=== PATIENT | female | born 1955 | race Caucasian/White ===

== ENCOUNTER 2016-05-30 15:50 | Inpatient (IN) ==
[2016-05-30] MEDS ORDERED: SODIUM CHLORIDE 0.9% 1,000 ML IV STA (16:09)
[2016-05-30] MEDS ORDERED: ALBUTEROL/IPRATROPIUM 3 ML NEB RESP TX STA (16:13)
[2016-05-30] MEDS ORDERED: SODIUM CHLORIDE 0.9% 500 ML IV STA (16:48)
[2016-05-30 16:53] LABS: Basophils % 0.3 % (0.0-0.8); Eosinophils % 0.1 % (0.00-10.9); Hematocrit 30.5 VOL% (35.7-47.0); Hemoglobin 8.8 GM/DL (12.0-16.0); Immature Granulocytes % 0.6 %; Immature Granulocytes Absolute 0.07 #; Lymphocytes # 0.8 10*3/uL (1.4-4.0); Lymphocytes % 7.4 % (21.3-54.2); Mean Corpuscular HGB Conc 28.9 GM/DL (32-36); Mean Corpuscular Hemoglobin 22 PG (27-34); Mean Corpuscular Volume 75.7 FL (87-102); Mean Platelet Volume 10.3 FL (9.6-12.0); Monocytes # 0.4 10*3/uL (0.11-0.8); Monocytes % 3.8 % (1.7-12.7); Neutrophils # 9.5 10*3/uL (1.4-7.4); Neutrophils % 87.8 % (38.7-73.9); Platelet Count 245 T/CUMM (130-400); Red Blood Count 4.03 MC/CUMM (3.8-5.5); Red Cell Distribution Width 19.3 % (9.3-17.3); White Blood Count 10.8 T/CUMM (4-12)
--- NOTE | 2016-05-30 16:58 | CT Report ---
History is right upper abdominal mass on physical exam 80 cc Omnipaque 350 utilized There is dense edematous consolidation throughout the right lower lobe There is mildly inhomogeneous enhancement in the liver which is enlarged. Likely flow artifact in the left lobe present The spleen is mild to moderately enlarged without focal defect No focal defects seen in the pancreas, adrenals, or kidneys Patient is status post cholecystectomy Bowel is unopacified Unopacified loops of bowel present in the right upper abdomen negative. What is questionably appendix is within this region without definite surrounding inflammatory changes. Lack of bowel prep limits visualization There are atherosclerotic changes in the abdominal aorta which measures up to 2.5 cm. There is diastases of the rectus muscles Pelvis: No significant free fluid or focal inflammatory changes seen. Mild increased density in the lateral aspects of the sacrum bilaterally could be related to chronic sacroiliitis or chronic sacral insufficiency fractures. There is a chronic appearing incompletely united fracture with surrounding callus formation at symphysis on the right. Impression: 1. Dense edematous consolidation throughout the right lower lobe 2. Hepatosplenomegaly 3. Prior cholecystectomy and other findings detailed above The CT exam was performed using one or more of the following dose reduction techniques: Automated exposure control, adjustment of the mA and/or kV according to patient size, or use of iterative reconstruction technique. PROCEDURE INTERPRETED AT [facility] DEPARTMENT OF RADIOLOGY Final Report Signed by: Dr. Karissa Alegria
--- NOTE | 2016-05-30 17:01 | XRay Report ---
History short of breath Comparison 01/21/2015 The heart is enlarged. Mild hilar fullness may be related to vasculature and rotation without obvious change in the interval however the right hilum is partially obscured by a dense consolidation in the right lower lobe with suspected small effusion Mild stranding opacities and suspected confluence shadows in the left upper chest present with overlying chronic rib fractures seen on the prior studies Impression: 1. Dense consolidation and suspected effusion in the right lung base. Follow-up until clear is necessary to exclude underlying mass or adenopathy PROCEDURE INTERPRETED AT [facility] DEPARTMENT OF RADIOLOGY Final Report Signed by: Dr. Karissa Alegria
--- NOTE | 2016-05-30 17:06 | EKG Report ---
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
[2016-05-30 17:11] LABS: D-Dimer 1.6 MG/L FEU; INR 1.4; PT Patient Result 15.6 SECS
[2016-05-30 17:31] LABS: Alanine Aminotransferase 32 U/L (13-56); Albumin 2.9 G/DL (3.4-5.0); Alkaline Phosphatase 216 U/L (45-117); Aspartate Amino Transferase 36 U/L (0-37); Blood Urea Nitrogen 23 MG/DL (7-18); Calcium 8.2 MG/DL (8.5-10.1); Glucose 87 MG/DL (74-106); Magnesium 1.6 MG/DL (1.8-2.4); Osmolality,Calculated 277.7 MOS/KG (273-304); Potassium 3.2 MMOL/L (3.5-5.1); Sodium 138 MMOL/L (136-145); Total Protein 6.1 G/DL (6.4-8.3); Troponin I Only < 0.015 NG/ML (0.00-0.045)
[2016-05-30 17:33] LABS: Band Neutrophils 14 % (0-10); Lymphocytes 5 % (20-55); Metamyelocytes 2 %; Segmented Neutrophils 76 % (50-85); Total Cells Counted 100
[2016-05-30 17:34] LABS: Anisocytosis 1+; Burr Cells Few; Elliptocytes Few; Hypochromasia 1+
[2016-05-30 17:35] LABS: Platelet Estimate Adequate; Polychromasia Slight
--- NOTE | 2016-05-30 17:39 | Emergency Department Note ---
Efrain Boyle Brooke, am scribing for, and in the presence of, Domingo Ford MD 16:15. Logan Boyle Phillip K, MD, personally performed the services described in this documentation, ascribed by Inés Zuniga in my presence, and it is both accurate and complete 708 . Arrival - Arrival Chief Complaint: Shortness of Breath Stated Complaint: stomach pain, shortness of breath, ED Nursing Triage Note: abd pain and loose stoles onset last night, pt also complains of sob, hx of copd Mode of Arrival: Wheelchair Limitations: No Limitations Source: Patient, Family, RN Notes Reviewed Time Seen by Provider: 05/30/16 16:02 - History of Present Illness HPI Narrative: Patient is a 61 year old female who presents to the ED with c/o SOB, abdominal pain, and diarrhea. Patient says she has been SOB for a "while" but states that it worsened last night. Patient says the abdominal pain and diarrhea started this morning. The abdominal pain is located in the RUQ and she describes the pain as "burning." Patient has had two episodes of diarrhea today. Family states that Patient appears "yellow." Patient says she has had diverticulitis in the past but was not treated for it. She says it was found by scope performed by Dr. Boyd. She also has a productive cough with yellow mucous but she denies any fever. Patient no longer has a gallbladder. She sometimes gets a "little" dizzy when she sits up. She has PMHx of HTN, COPD, pneumonia, GERD, and anemia. She denies having any liver problems in the past. Patient has home breathing treatments. She says she does not have any heart problems but her family states that she is a "heart patient." Family says Patient had a thoracentesis last year. Patient is a smoker but does not drink any alcohol. Her Primary Care Provider is Dr. Cuello that is located in [place]. Allergies/Adverse Reactions: Allergies Allergy/AdvReac Type Severity Reaction Status Date / Time codeine Allergy Intermediate RASH Verified 01/16/15 10:33 Cefaclor [From Ceclor] Allergy RASH Verified 05/30/16 15:57 Home Medications: Home Medications Medication Instructions Recorded Confirmed Type Amitriptyline HCl 25 - 50 mg PO BEDTIME 01/15/15 05/30/16 History Butalb/Acetaminophen/Caffeine 1 mg PO TID PRN 01/15/15 05/30/16 History [Wliyzd-Zlnctxpn-Vwjh 50-325-40] Promethazine Tab [Phenergan Tab] 25 mg PO BID PRN 01/15/15 05/30/16 History Tizanidine HCl 4 mg PO BEDTIME 01/15/15 05/30/16 History Albuterol Neb [Proventil Neb] 2.5 mg RESP TX RT Q1H PRN #30 01/22/15 05/30/16 Rx nebulization solution Budesonide/Formoterol 160-4.5 2 puff INH BID #30 inhaler 01/22/15 05/30/16 Rx [Symbicort 160-4.5] Lisinopril [Prinivil] 5 mg PO DAILY #30 tablet 01/22/15 05/30/16 Rx Albuterol Sulfate [Proair HFA] 2 puffs INH Q4-6H 05/30/16 05/30/16 History Metoprolol Succinate Xl [Toprol Xl] 25 mg PO DAILY 05/30/16 05/30/16 History cephALEXin [Cephalexin] 500 mg PO BID 05/30/16 05/30/16 History Review of System - Review of System 12 point system: reviewed and no additional remarkable complaints except as stated - Review of System Constitutional: Absent: fever Respiratory: Present: cough (productive with yellow mucous), respiratory distress (SOB) Gastrointestinal: Present: abdominal pain (left sided burning pain), diarrhea. Absent: nausea, vomiting Skin: Present: other (appears yellow). Absent: rash Medical,Surgical,& Family Hx - Medical History Cardio: History of: Hypertension No history of: CAD HEENT: History of: Eye Problem (wears glasses), Dental Problems (partial dentures) Endocrine: No history of: Diabetes Mellitus (IDDM), Diabetes Mellitus (NIDDM), Dyslipidemia Respiratory: History of: COPD, Pneumonia Gastrointestinal: History of: GERD Hematology: History of: Anemia - Surgical History Thoracic Surgeries: Patient denies;: Organ Transplant Abdominal Surgeries: Surgical HX of: Cholecystectomy Reproductive Surgeries: Surgical HX of;: Section - Family History Family History: Reports;: Family Cancer Denies;: Family Diabetes, Family Heart Disease, Family Hypertension, Family Stroke - Social History Smoking Status: Smoker, status unknown Exam Vital Signs: Vital Signs Temperature 98.1 F 05/30/16 15:53 Pulse Rate 108 H 05/30/16 16:49 Respiratory Rate 36 H 05/30/16 16:54 Blood Pressure 89/43 05/30/16 15:53 O2 Sat by Pulse Oximetry 99 05/30/16 16:49 - General General appearance: alert, in distress (secondary to respiratory) - Head Head exam: Present: atraumatic - Eye Eye exam: Present: PERRL, EOMI, scleral icterus - ENT ENT exam: Present: mucous membranes dry - Neck Neck exam: Present: normal inspection - Chest Chest inspection: Present: normal inspection - Respiratory Respiratory exam: Present: wheezes, other (decreased breath sounds on the right base) - Cardiovascular Cardiovascular exam: Present: regular rate, normal rhythm, normal heart sounds. Absent: murmur, rubs - Abdominal Exam Abdominal exam: Present: soft, tenderness (right upper quadrant), normal bowel sounds, organomegaly (palpable liver ). Absent: rebound - Rectal Exam Rectal exam: Present: heme (+) stool - Extremities Exam Extremities exam: Present: normal inspection - Back Exam Back exam: Present: normal inspection - Neurological Exam Neurological exam: Present: alert, oriented X3, CN II-XII intact. Absent: motor sensory deficit - Psychiatric Psychiatric exam: Present: normal affect, normal mood - Skin Skin exam: Present: warm, dry Course Course Narrative: Patient discussed with the hospitalist. She will need an ICU bed. Results - Labs CBC & BMP: 05/30/16 16:39 05/30/16 16:39 Lab Results: I have reviewed the patients labs Labs: Laboratory Tests 05/30/16 05/30/16 05/30/16 16:39 16:39 16:39 Hgb 8.8 L Hct 30.5 L MCV 75.7 L MCH 22 L MCHC 28.9 L RDW 19.3 H Neut % (Auto) 87.8 H Lymph % (Auto) 7.4 L Neut # (Auto) 9.5 H Lymph # (Auto) 0.8 L Band Neutrophils 14 H Lymphocytes 5 L Basophils 1.0 H Potassium 3.2 L Carbon Dioxide 20 L Anion Gap 21.2 H BUN 23 H Creatinine 1.60 H Calcium 8.2 L Magnesium 1.6 L Alkaline Phosphatase 216 H B-Natriuretic Peptide 503 H Total Protein 6.1 L Albumin 2.9 L Albumin/Globulin Ratio 0.9 L - EKG EKG results: interpreted by JARRED, sinus rhythm (inferior and lateral ischemia) - Diagnostic Findings Procedure: Chest x-ray: report reviewed by me (1. Dense consolidation and suspected effusion in the right lung base. Follow up until clear is necessary to exclude underlying mass or adenopathy.), CT Abdomen and Pelvis: report reviewed by me (1. Dense edematous consolidation throughout the right lower lobe. 2. Hepatosplenomegaly. 3. Prior cholecystecomy and other findings detailed above.) Disposition Clinical Impression: Hypotension, Hepatosplenomegaly, Diarrhea, Heme positive stool, Right lower lobe pneumonia, Pleural effusion, right, Anemia, Hypokalemia Case discussed with: patient, patient's family Disposition: Still a Patient Condition: Critical Additional Instructions: Admit to ICU to the hospitalist.
[2016-05-30 17:41] LABS: Apearance,Urine CLEAR (Clear); Bilirubin,Urine Negative (Negative); Blood, Urine Negative (Negative); Glucose,Urine (UA) Negative (Negative); Ketones,Urine Negative (Negative); Nitrite,Urine Negative (Negative); Protein,Urine Negative; RBC,Urine 1 /HPF (0-4); Urine Color Yellow (Yellow); Urine Urobilinogen < 2.0 EU/DL (0.2-1.0); WBC,Urine <1 /HPF (0-6)
[2016-05-30] MEDS ORDERED: LEVOFLOXACIN INJ 750 MG in PREMIX 1 EACH IV STA (17:55)
[2016-05-30] MEDS ORDERED: LEVOFLOXACIN INJ 150 ML IV ONE (17:57)
[2016-05-30] MEDS ORDERED: ALBUTEROL 2.5 MG/3 ML NEB RESP TX PRN ×2 (18:02→18:50)
--- NOTE | 2016-05-30 18:12 | Hospitalist History & Physical ---
Assessment and Plan (1) Hypokalemia Status: Acute Assessment and plan: We will correct potassium deficits and re-check in AM. Current Visit: Yes (2) Right lower lobe pneumonia Status: Acute Assessment and plan: We will obtain javed cultures and start empirical antibiotics until culture results are obtained. Pulmonary consult requested. Will start PPI's, VTE prophylaxis, corticosteriods. Obtain CXR in AM. The patient is critical; may require intubation if status does not improve. This was discussed in great detail with the patient and her . Current Visit: Yes Qualifiers: Pneumonia type: due to unspecified organism Qualified Code(s): J18.1 - Lobar pneumonia, unspecified organism (3) Hypomagnesemia Status: Acute Assessment and plan: Will correct deficit and recheck in AM. Current Visit: Yes (4) Abdominal organomegaly Status: Acute Assessment and plan: Both spleen and liver were grossly enlarged and easily palpable; will obtain abdominal ultrasound and hepatitis panel. Current Visit: Yes History of Present Illness Chief complaint: Shorteness of breath History of present illness: This a very unfortunate frail 61 year-old woman that presented to the ED this afternoon with a chief complaint of shortness of breath, abdominal pain, diarrhea. She has a rather impressive past medical history of chronic obstructive pulmonary disease, tobacco abuse, anemia, diverticulitis, GERD, and hypertension. At the time of presentation, she was noted having extreme difficulty breathing. Her oxygen saturations were 84% on room air. She was also grossly hypotensive at 89/43. She is unable to answer any questions due to her current respiratory status; however her is at the bedside providing information. He reports tahts she has been short of breath for a while and that is usually her normal state. He reports that her shortness of breath worsened on last night and became increasingly severe this morning. He also reports that she has been experiencing abdominal pain that was largely isolated to the right upper quadrant. He reports that she has also had bouts of diarrhea in recent days, but thought that it was a diverticulitis flare-up, since she had similar events such as this in the past. He also reports that she still smokes and had been advised on multiple occasions to stop. Prior to admission, he reports that the patient had a productive cough with sputum "yellow" in color and thick in consistency. He also reports that she took several breathing treatments with no relief. He denies alcohol or elicit drug use. She will be admitted to under the hospitalist services to the critical care unit. A pulmonary and GI consult will be requested. The patients respiratory is not favorable, may require eventual intubation. Home Medications Medication Instructions Recorded Confirmed Type Amitriptyline HCl 25 - 50 mg PO BEDTIME 01/15/15 05/30/16 History Butalb/Acetaminophen/Caffeine 1 mg PO TID PRN 01/15/15 05/30/16 History [Zotmlb-Gtxorcwh-Yvph 50-325-40] Promethazine Tab [Phenergan Tab] 25 mg PO BID PRN 01/15/15 05/30/16 History Tizanidine HCl 4 mg PO BEDTIME 01/15/15 05/30/16 History Albuterol Neb [Proventil Neb] 2.5 mg RESP TX RT Q1H PRN #30 01/22/15 05/30/16 Rx nebulization solution Budesonide/Formoterol 160-4.5 2 puff INH BID #30 inhaler 01/22/15 05/30/16 Rx [Symbicort 160-4.5] Lisinopril [Prinivil] 5 mg PO DAILY #30 tablet 01/22/15 05/30/16 Rx Albuterol Sulfate [Proair HFA] 2 puffs INH Q4-6H 05/30/16 05/30/16 History Metoprolol Succinate Xl [Toprol Xl] 25 mg PO DAILY 05/30/16 05/30/16 History cephALEXin [Cephalexin] 500 mg PO BID 05/30/16 05/30/16 History Allergies Allergy/AdvReac Type Severity Reaction Status Date / Time codeine Allergy Intermediate RASH Verified 01/16/15 10:33 Cefaclor [From Ceclor] Allergy RASH Verified 05/30/16 15:57 Medical,Surgical,& Family Hx - Medical History Cardio: History of: Hypertension No history of: CAD HEENT: History of: Eye Problem (wears glasses), Dental Problems (partial dentures) Endocrine: No history of: Diabetes Mellitus (IDDM), Diabetes Mellitus (NIDDM), Dyslipidemia Respiratory: History of: COPD, Pneumonia Gastrointestinal: History of: GERD Hematology: History of: Anemia - Surgical History Thoracic Surgeries: Patient denies;: Organ Transplant Abdominal Surgeries: Surgical HX of: Cholecystectomy Reproductive Surgeries: Surgical HX of;: Section - Family History Family History: Reports;: Family Cancer Denies;: Family Diabetes, Family Heart Disease, Family Hypertension, Family Stroke - Social History Smoking Status: Current every day smoker Have you smoked in the last 12 months: Yes Time spent discussing smoking cessation with patient: more than 10 minutes Frequency of Alcohol Use: Unknown Type of Drug Use: Unknown Marital Status: Lives With:: Spouse Functional capacity: independent ambulation ROS unobtainable: other (ROS unobtainable due to severe dyspnea) Exam - Constitutional General appearance: severe distress, cachectic - Head Head exam: Present: normal inspection, normocephalic, atraumatic - Eye Eye exam: Present: EOMI Pupils: Present: WAQAR, normal accommodation - ENT ENT exam: Present: normal exam - Neck Neck exam: Present: normal inspection. Absent: lymphadenopathy, meningismus, tenderness, thyromegaly - Respiratory Respiratory exam: Present: accessory muscle use, decreased breath sounds, rhonchi (decreased breath sounds to the right lung bases) - Cardiovascular Cardiovascular exam: Present: JVD, tachycardia. Absent: carotid bruit, diastolic murmur, gallop, rubs, systolic murmur - GI/Abdominal GI/Abdominal exam: Present: hypoactive bowel sounds, tenderness (RUQ tender upon gentle palpation), other (splenomegaly and hepatomegaly appreciated) - Extremities Exam Extremities exam: Present: normal inspection, full ROM - Back Exam Back exam: Present: normal inspection - Neurological Exam Neurological exam: Present: alert, oriented X3 - Psychiatric Psychiatric exam: Present: anxious - Skin Skin exam: Present: warm, dry, pallor Results - Labs CBC & BMP: 05/30/16 16:39 05/30/16 16:39 Lab Results: I have reviewed the past 24 hour labs
[2016-05-30] MEDS ORDERED: LEVOFLOXACIN INJ 750 MG in PREMIX 1 EACH IV SCH (18:30)
[2016-05-30] MEDS ORDERED: ONDANSETRON 4 MG/2 ML VIAL IV PRN (18:50)
[2016-05-30] MEDS ORDERED: MAGNESIUM SULF RIDER 4 GM in PREMIX 1 EACH IV PRN (18:50)
[2016-05-30] MEDS ORDERED: POTASSIUM CHLORIDE RIDER 10 MEQ in PREMIX 1 EACH IV PRN (18:50)
[2016-05-30] MEDS ORDERED: SODIUM CHLORIDE 0.9% 1,000 ML IV SCH (18:50)
[2016-05-30] MEDS ORDERED: MAGNESIUM SULF RIDER 2 GM in PREMIX 1 EACH IV PRN (18:50)
[2016-05-30] MEDS ORDERED: NICOTINE 21 MG/24 HR PATCH TRANSDERM PRN (18:50)
[2016-05-30] MEDS ORDERED: ALBUTEROL/IPRATROPIUM 3 ML NEB RESP TX SCH (19:00)
[2016-05-30] MEDS: PANTOPRAZOLE 40 MG VIAL IV SCH (19:07)
[2016-05-30] MEDS: methylPREDNISolone SOD SUC 125 MG/2 ML VIAL IV SCH (19:07)
[2016-05-30] MEDS: LEVALBUTEROL 1.25 MG/3 ML NEB RESP TX SCH (19:27)
[2016-05-30] MEDS: AZTREONAM 2,000 MG in SODIUM CHLORIDE 0.9% 100 ML IV SCH (19:43)
[2016-05-30 21:01] LABS: ABG Base Excess -4.1 MMOL/L (-2.5-2.5); ABG HCO3 20.9 MMOL/L (20-26); ABG Oxygen Saturation 89.7 % (95-100); ABG PCO2 23.6 MM HG (35-48); ABG PH 7.497 (7.35-7.45); ABG PO2 53.8 MM HG (80-95); ABG TCO2 17.1 MMOL/L (23-27)
[2016-05-30] MEDS: BUDESONIDE/FORMOTEROL 160-4.5 INHALER 6 GM INH SCH (21:15)
[2016-05-31] MEDS: AZTREONAM 2,000 MG in SODIUM CHLORIDE 0.9% 100 ML IV SCH ×4 (01:00→18:05)
[2016-05-31] MEDS: methylPREDNISolone SOD SUC 125 MG/2 ML VIAL IV SCH ×4 (01:36→18:05)
[2016-05-31] MEDS: LEVALBUTEROL 1.25 MG/3 ML NEB RESP TX SCH ×4 (01:50→18:15)
[2016-05-31 04:33] LABS: Allen Test Positive; Pt O2 Delivery Device Venturi Mask
[2016-05-31 04:36] LABS: ABG Base Excess -1.6 MMOL/L (-2.5-2.5); ABG HCO3 20.5 MMOL/L (20-26); ABG PCO2 25.5 MM HG (35-48); ABG PH 7.524 (7.35-7.45); ABG PO2 58.3 MM HG (80-95); ABG TCO2 21.3 MMOL/L (23-27)
[2016-05-31 05:44] LABS: Basophils % 0.5 % (0.0-0.8); Hematocrit 25.8 VOL% (35.7-47.0); Hemoglobin 7.6 GM/DL (12.0-16.0); Immature Granulocytes % 1.4 %; Immature Granulocytes Absolute 0.09 #; Lymphocytes # 0.3 10*3/uL (1.4-4.0); Lymphocytes % 4.2 % (21.3-54.2); Mean Corpuscular HGB Conc 29.5 GM/DL (32-36); Mean Corpuscular Hemoglobin 22 PG (27-34); Mean Corpuscular Volume 73.1 FL (87-102); Mean Platelet Volume 11.2 FL (9.6-12.0); Monocytes # 0.2 10*3/uL (0.11-0.8); Monocytes % 2.7 % (1.7-12.7); Neutrophils # 5.8 10*3/uL (1.4-7.4); Neutrophils % 91.2 % (38.7-73.9); Platelet Count 168 T/CUMM (130-400); Red Blood Count 3.53 MC/CUMM (3.8-5.5); Red Cell Distribution Width 19.2 % (9.3-17.3); White Blood Count 6.4 T/CUMM (4-12)
[2016-05-31 06:24] LABS: Band Neutrophils 17 % (0-10); Calcium 7.6 MG/DL (8.5-10.1); Elliptocytes Few; Hypochromasia 1+; Lymphocytes 4 % (20-55); Magnesium 1.5 MG/DL (1.8-2.4); Osmolality,Calculated 279.8 MOS/KG (273-304); Platelet Estimate Normal; Potassium 3.1 MMOL/L (3.5-5.1); Segmented Neutrophils 78 % (50-85); Total Cells Counted 100
[2016-05-31 06:25] LABS: Risk Ratio 2.87; Thyroid Stimulating Hormone 0.452 uIU/ml (0.358-3.74)
--- NOTE | 2016-05-31 07:22 | XRay Report ---
XR chest 1V portable Indication: Pneumonia. Shortness of breath. Chest one view: Since yesterday, increasing opacity in the right lower lobe is noted. Left lung is stable. Cardiomegaly is unchanged as well. Impression: Worsening right basilar pneumonia and/or effusion. PROCEDURE INTERPRETED AT [facility] DEPARTMENT OF RADIOLOGY Final Report Signed by: Remigio Corral M.D.
[2016-05-31] MEDS ORDERED: PROMETHAZINE 25 MG TABLET PO PRN (08:07)
[2016-05-31] MEDS ORDERED: BUTALBITAL/ACETAMIN/CAFFEINE 50-325-40 MG TABLET PO PRN (08:07)
[2016-05-31] MEDS ORDERED: AMITRIPTYLINE 50 MG TABLET PO PRN (08:07)
--- NOTE | 2016-05-31 08:07 | Hospitalist Progress Note ---
Assessment and Plan (1) Right lower lobe pneumonia Status: Acute Assessment and plan: Continue Levaquin and Azactam. Sputum and blood cultures pending. Current Visit: Yes Qualifiers: Pneumonia type: due to unspecified organism (2) COPD exacerbation Status: Acute Assessment and plan: Continue IV Solu-Medrol and DuoNeb treatments. Antibiotics ongoing for right lower lobe pneumonia. Pulmonary following. Discussed with Dr. Park. Current Visit: Yes (3) Anemia Status: Acute Assessment and plan: Anemia panel ordered. Type and screen and transfuse 2 units of packed red blood cells. Given the patient's anemia with difficulty oxygenating secondary to COPD and right lower lobe pneumonia, I feel she would benefit from 2 units of packed red blood cells. Current Visit: Yes Qualifiers: Anemia type: unspecified type Qualified Code(s): D64.9 - Anemia, unspecified (4) Hypokalemia Status: Acute Assessment and plan: IV and oral supplementation ordered. Current Visit: No (5) Dehydration Status: Acute Assessment and plan: Receiving IV fluids. Creatinine improving. Current Visit: No (6) NAYELI (acute kidney injury) Status: Acute Assessment and plan: Continue IV fluids. Creatinine improving. Current Visit: Yes Hospitalist: Subjective Interval history: Patient seen and examined. Admitted to the ICU yesterday with right lower lobe pneumonia and COPD exacerbation. Currently on 50% Ventimask. Has labored respirations with conversation. Dr. Park bedside seeing patient at the time of my evaluation. Exam - Constitutional Vitals: Period Temp Pulse Resp BP Sys/Enciso Pulse Ox Last 24 Hr 98 F-98.7 F 108-119 19-42 70-121/38-103 89-97 Exam: Constitutional System: Mild distress. No tremulousness. Head: Normocephalic, atraumatic. Ears, Nose and Throat System: No pain or tenderness. No epistaxis or discharge Eyes System: Pupils equal, round, and reactive. Extraocular muscles intact. Neck: Supple, without adenopathy, No jugular venous distention. No thyromegaly, neck mass, or prior surgery apparent. Respiratory System: Chest rhonchi and wheezes to auscultation. Cardiovascular System: Heart with tachycardic rate and rhythm. No murmur. GI System: Abdomen soft, nontender. Normo active bowel sounds present. Musculoskeletal System: limbs with no pedal edema. Full distal pulses. Neurological System: No discernable sensory deficit. No aphasia Psychiatric System: Conversation is rational Results - Labs CBC & BMP: 05/31/16 04:35 05/31/16 04:35 Lab Results: I have reviewed the past 24 hour labs - Diagnostic Findings Procedure: Chest x-ray: image reviewed by me, report reviewed by me Quality Measures - VTE Contraindication to Pharmacological VTE Prophylaxis: Clinical assessment deems Pt at low risk, no prophalaxis needed
[2016-05-31] MEDS ORDERED: POTASSIUM CHLORIDE 20 MEQ TABLET PO ONE (08:11)
--- NOTE | 2016-05-31 08:12 | Pulmonology Consult Note ---
Assessment and Plan (1) Anemia Status: Acute Assessment and plan: The patient's hemoglobin is 7.6 and she will get transfused today. Current Visit: Yes Qualifiers: Anemia type: unspecified type Qualified Code(s): D64.9 - Anemia, unspecified (2) Right lower lobe pneumonia Status: Acute Assessment and plan: Patient has a right lower lobe consolidation with right hilar prominence and will need to bronchoscope once she stable. She will continue with steroids and antibiotics. Current Visit: Yes Qualifiers: Pneumonia type: due to unspecified organism (3) COPD exacerbation Status: Acute Assessment and plan: The patient is a smoker with COPD and will continue with bronchodilator therapy and steroids. Current Visit: Yes (4) Diarrhea Status: Acute Assessment and plan: Her diarrhea and abdominal pain are being evaluated by GI. Current Visit: Yes (5) Abdominal pain Status: Acute Assessment and plan: The patient has mild abdominal pain but her CT was negative. Current Visit: Yes History of Present Illness Chief complaint: Shortness of breath History of present illness: Ms. Washburn is a 61 year old white female that has a long history of COPD and smoking history. She also has a history of hypertension and GE reflux and diverticulitis. She came in with hypoxemia and hypotension was felt to possibly be septic with pneumonia. She has a considerable right lower lobe infiltrate. She says she has been coughing and having some yellow sputum production. She has also had some left crampy abdominal pain and diarrhea. She was in with a pneumonia in 2014 and had a right pleural effusion at that time. Thoracentesis suggested a parapneumonic effusion with negative cytology. She apparently has done reasonably well since that admission in 2014. She had hypoxemia and is on oxygen but feels a little better today. She still has a good bit of coughing. Home Medications Medication Instructions Recorded Confirmed Type Amitriptyline HCl 25 - 50 mg PO BEDTIME 01/15/15 05/30/16 History Butalb/Acetaminophen/Caffeine 1 mg PO TID PRN 01/15/15 05/30/16 History [Woewcn-Lzbvmjcn-Cftp 50-325-40] Promethazine Tab [Phenergan Tab] 25 mg PO BID PRN 01/15/15 05/30/16 History Tizanidine HCl 4 mg PO BEDTIME 01/15/15 05/30/16 History Albuterol Neb [Proventil Neb] 2.5 mg RESP TX RT Q1H PRN #30 01/22/15 05/30/16 Rx nebulization solution Budesonide/Formoterol 160-4.5 2 puff INH BID #30 inhaler 01/22/15 05/30/16 Rx [Symbicort 160-4.5] Lisinopril [Prinivil] 5 mg PO DAILY #30 tablet 01/22/15 05/30/16 Rx Albuterol Sulfate [Proair HFA] 2 puffs INH Q4-6H 05/30/16 05/30/16 History Metoprolol Succinate Xl [Toprol Xl] 25 mg PO DAILY 05/30/16 05/30/16 History cephALEXin [Cephalexin] 500 mg PO BID 05/30/16 05/30/16 History Allergies Allergy/AdvReac Type Severity Reaction Status Date / Time codeine Allergy Intermediate RASH Verified 01/16/15 10:33 Cefaclor [From Ceclor] Allergy RASH Verified 05/30/16 15:57 - Constitutional Constitutional: Present: chills, fatigue, weakness. Absent: fever(s), weight loss - EENT Eyes: Absent: loss of vision Ears: Absent: decreased hearing Nose, mouth and throat: Absent: dysphagia, headache(s), hoarseness - Cardiovascular Cardiovascular: Present: dyspnea. Absent: chest pain at rest, palpitations - Respiratory Respiratory: Present: cough, dyspnea, change in phlegm color. Absent: hemoptysis, pain on inspiration - Gastrointestinal Gastrointestinal: Present: abdominal pain, cramping, diarrhea. Absent: nausea, vomiting - Genitourinary Genitourinary: Absent: difficulty urinating, dysuria, hematuria - Musculoskeletal Musculoskeletal: Absent: arthralgias - Neurological Neurological: Absent: abnormal speech, focal weakness Exam (Pulmonay) H&P - Constitutional Vitals: Period Temp Pulse Resp BP Sys/Enciso Pulse Ox Last 24 Hr 98 F-98.7 F 108-119 19-42 70-121/38-103 89-97 General appearance: normal weight, mild distress - Head Head exam: Present: normal inspection, normocephalic - Eye Eye exam: Present: EOMI. Absent: scleral icterus Pupils: Present: WAQAR - ENT ENT exam: Present: normal exam - Neck Neck exam: Present: normal inspection. Absent: lymphadenopathy, thyromegaly - Respiratory Respiratory exam: Present: decreased breath sounds (She has decreased breath sounds in the right base), rales, rhonchi - Cardiovascular Cardiovascular exam: Present: regular rate and rhythm, tachycardia. Absent: gallop, systolic murmur - GI/Abdominal GI/Abdominal exam: Present: hyperactive bowel sounds, tenderness (She has tenderness in her left lower quadrant.), soft. Absent: guarding, rebound - Neurological Exam Neurological exam: Present: alert, oriented X3, CN II-XII intact - Psychiatric Psychiatric exam: Present: anxious - Skin Skin exam: Present: warm, dry Medical,Surgical,& Family Hx - Medical History Cardio: History of: CHF, Hypertension No history of: CAD Neurology: History of: Migraine HEENT: History of: Eye Problem (wears glasses), Dental Problems (partial dentures) Endocrine: No history of: Diabetes Mellitus (IDDM), Diabetes Mellitus (NIDDM), Dyslipidemia Rheumatology: History of;: Rheumatoid Arthritis Respiratory: History of: Asthma, Bronchitis, COPD, Pneumonia Gastrointestinal: History of: Diverticulitis/ Diverticulosis, GERD, Gastrointestinal Bleed ("R/T ULCERS"), Liver Problems (ENLARGED) Musculoskeletal: History of: Back/Neck Problems Hematology: History of: Anemia - Surgical History Thoracic Surgeries: Patient denies;: Organ Transplant Neurologic Surgeries: Patient denies: Neurologic Surgery Abdominal Surgeries: Surgical HX of: Cholecystectomy Reproductive Surgeries: Surgical HX of;: Section, Dilation and Curettage, Tubal Ligation - Family History Family History: Reports;: Family Cancer Denies;: Family Diabetes, Family Heart Disease, Family Hypertension, Family Stroke - Social History Smoking Status: Current every day smoker Frequency of Alcohol Use: Unknown Type of Drug Use: Unknown Results - Labs CBC & BMP: 05/31/16 08:25 05/31/16 04:35 Labs: PO2 is 58 with a PCO2 25 and a pH of 7.52. - Diagnostic Findings Procedure: Chest x-ray: image reviewed by me, report reviewed by me (Chest x- ray does show a consolidated right lower lobe. The right hilum does look a little prominent) Quality Measures - VTE Contraindication to Pharmacological VTE Prophylaxis: Clinical assessment deems Pt at low risk, no prophalaxis needed
[2016-05-31 08:33] LABS: Basophils % 0.1 % (0.0-0.8); Hematocrit 26.6 VOL% (35.7-47.0); Hemoglobin 7.8 GM/DL (12.0-16.0); Immature Granulocytes % 1.2 %; Immature Granulocytes Absolute 0.11 #; Lymphocytes # 0.3 10*3/uL (1.4-4.0); Lymphocytes % 3.3 % (21.3-54.2); Mean Corpuscular HGB Conc 29.3 GM/DL (32-36); Mean Corpuscular Hemoglobin 22 PG (27-34); Mean Corpuscular Volume 75.4 FL (87-102); Monocytes # 0.4 10*3/uL (0.11-0.8); Monocytes % 3.9 % (1.7-12.7); Neutrophils # 8.7 10*3/uL (1.4-7.4); Neutrophils % 91.5 % (38.7-73.9); Platelet Count 162 T/CUMM (130-400); Red Blood Count 3.53 MC/CUMM (3.8-5.5); Red Cell Distribution Width 19.3 % (9.3-17.3); White Blood Count 9.5 T/CUMM (4-12)
[2016-05-31 08:37] LABS: Ferritin 84.8 ng/ml (8-252)
[2016-05-31 08:52] LABS: Band Neutrophils 52 % (0-10); Hypochromasia 2+; Lymphocytes 2 % (20-55); Platelet Estimate Adequate; Segmented Neutrophils 43 % (50-85); Total Cells Counted 100
[2016-05-31] MEDS: METOPROLOL SUCCINATE XL 25 MG TABLET PO SCH (09:03)
[2016-05-31 09:05] LABS: Folate > 24.0 NG/ML (5.4-24.0); Vitamin B12 614 PG/ML (211-911)
[2016-05-31] MEDS: BUDESONIDE/FORMOTEROL 160-4.5 INHALER 6 GM INH SCH ×2 (09:10→20:18)
[2016-05-31] MEDS: LISINOPRIL 5 MG TABLET PO SCH (09:10)
[2016-05-31] MEDS ORDERED: SODIUM CHLORIDE 0.9% 250 ML IV PRN (09:13)
--- NOTE | 2016-05-31 14:12 | EKG Report ---
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
--- NOTE | 2016-05-31 16:12 | ECHO Report ---
Sharla Washburn Exam Date: 05/31/2016 09:23 Referring Physician: Technologist: Petra Blas RDCS Age: 61 Ht (in): 60 Wt (lb): 120 Gender: F Exam Location: [facility] Echo Indications: RLL pneumonia, COPD, Anemia, Hypokalemia, Hypomagnesemia, Shortness of breath, Essential (primary) hypertension, Nicotine dependence, cigarettes, uncomplicated BP: 114 / 49 HR: 112 Rhythm: Sinus Technical Quality: Good IMPRESSIONS Normal left ventricular cavity size. Normal left ventricular wall thickness. Left ventricular ejection fraction is estimated at 55 %. The right ventricle is normal in size and function. The right atrium is normal in size. Mild atrial enlargement in apical view (elongated LA). Morphologically normal mitral valve. Trace mitral valve regurgitation. Morphologically normal aortic valve without significant sclerosis or stenosis. There is no aortic regurgitation. Morphologically normal tricuspid valve. Trace to mild tricuspid valve regurgitation. Tricuspid regurgitation velocities suggest a PAP of 45 mmHg. Morphologically normal pulmonic valve without significant stenosis. There is no pulmonic regurgitation. Normal pericardium without effusion. Normal ascending aorta dimension. MEASUREMENTS (Male / Female) Normal Values 2D ECHO LV Diastolic Diameter PLAX 4.9 cm 4.2 - 5.9 / 3.9 - 5.3 cm LV Systolic Diameter PLAX 3.2 cm LV Fractional Shortening PLAX 34.2 % IVS Diastolic Thickness 1.0 cm 0.6 - 1.0 / 0.6 - 0.9 cm LVPW Diastolic Thickness 1.0 cm 0.6 - 1.0 / 0.6 - 0.9 cm RV Internal Dim ED PLAX 2.6 cm Aortic Root Diameter 2.8 cm LA Systolic Diameter LX 3.1 cm 3.0 - 4.0 / 2.7 - 3.8 cm DOPPLER TR Peak Velocity 297.0 cm/s TR Peak Gradient 35.3 mmHg FINDINGS Left Ventricle Normal left ventricular cavity size. Normal left ventricular wall thickness. Left ventricular ejection fraction is estimated at 55 %. Right Ventricle The right ventricle is normal in size and function. Right Atrium The right atrium is normal in size. Left Atrium Mild atrial enlargement in apical view (elongated LA). Mitral Valve Morphologically normal mitral valve. Trace mitral valve regurgitation. Aortic Valve Morphologically normal aortic valve without significant sclerosis or stenosis. There is no aortic regurgitation. Tricuspid Valve Morphologically normal tricuspid valve. Trace to mild tricuspid valve regurgitation. Tricuspid regurgitation velocities suggest a PAP of 45 mmHg. Pulmonic Valve Morphologically normal pulmonic valve without significant stenosis. There is no pulmonic regurgitation. Pericardium Normal pericardium without effusion. Aorta Normal ascending aorta dimension. Lopez Vargas MD (Electronically Signed) Final Date: 31 May 2016 16:11
[2016-05-31] MEDS: PANTOPRAZOLE 40 MG VIAL IV SCH (18:04)
[2016-05-31] MEDS: tiZANidine 4 MG TABLET PO SCH (20:18)
[2016-06-01] MEDS: AZTREONAM 2,000 MG in SODIUM CHLORIDE 0.9% 100 ML IV SCH ×4 (00:58→18:22)
[2016-06-01] MEDS: LEVALBUTEROL 1.25 MG/3 ML NEB RESP TX SCH ×4 (00:58→19:23)
[2016-06-01] MEDS: methylPREDNISolone SOD SUC 125 MG/2 ML VIAL IV SCH ×4 (00:58→18:22)
[2016-06-01 03:13] LABS: Basophils % 0.2 % (0.0-0.8); Hematocrit 32.8 VOL% (35.7-47.0); Immature Granulocytes % 0.3 %; Immature Granulocytes Absolute 0.03 #; Lymphocytes # 0.3 10*3/uL (1.4-4.0); Lymphocytes % 3.5 % (21.3-54.2); Mean Corpuscular HGB Conc 30.5 GM/DL (32-36); Mean Corpuscular Hemoglobin 24 PG (27-34); Mean Corpuscular Volume 78.8 FL (87-102); Mean Platelet Volume 10.2 FL (9.6-12.0); Monocytes # 0.4 10*3/uL (0.11-0.8); Monocytes % 4.5 % (1.7-12.7); Neutrophils # 7.9 10*3/uL (1.4-7.4); Neutrophils % 91.5 % (38.7-73.9); Platelet Count 151 T/CUMM (130-400); Red Blood Count 4.16 MC/CUMM (3.8-5.5); Red Cell Distribution Width 20.9 % (9.3-17.3); White Blood Count 8.6 T/CUMM (4-12)
[2016-06-01 03:44] LABS: Calcium 8.4 MG/DL (8.5-10.1); Magnesium 2.6 MG/DL (1.8-2.4); Osmolality,Calculated 286.5 MOS/KG (273-304); Potassium 3.6 MMOL/L (3.5-5.1)
[2016-06-01 04:05] LABS: Band Neutrophils 5 % (0-10); Lymphocytes 3 % (20-55); Segmented Neutrophils 92 % (50-85); Total Cells Counted 100
[2016-06-01 04:06] LABS: Burr Cells 4+
[2016-06-01 04:07] LABS: Elliptocytes 1+; Platelet Estimate Normal
[2016-06-01] MEDS: METOPROLOL SUCCINATE XL 25 MG TABLET PO SCH (08:15)
[2016-06-01] MEDS: LISINOPRIL 5 MG TABLET PO SCH (08:16)
[2016-06-01] MEDS: BUDESONIDE/FORMOTEROL 160-4.5 INHALER 6 GM INH SCH ×2 (08:16→20:21)
--- NOTE | 2016-06-01 08:32 | Pulmonology Progress Note ---
Pulmonary - PN: Subj Interval history: Patient is a 61-year-old white lady that comes in with right lower lobe pneumonia. She is a smoker with some COPD. She had been having abdominal pain and diarrhea also. Her C. difficile titer was negative. She was transfused a couple units of blood and she does look much better today. She says she is breathing better and having less shortness of breath. Her abdominal pain is better. She looks more comfortable today. Exam (Progress Note) - Constitutional Vitals: Period Temp Pulse Resp BP Sys/Enciso Pulse Ox Last 24 Hr 96.4 F-98.6 F 84-112 10-30 94-151/39-89 88-100 Exam: General appearance: normal weight, no distress, she is alert and comfortable today in no distress. - Head Head exam: Present: normal inspection, normocephalic - Eye Eye exam: Present: EOMI. Absent: scleral icterus Pupils: Present: WAQAR - ENT ENT exam: Present: normal exam - Neck Neck exam: Present: normal inspection. Absent: lymphadenopathy, thyromegaly - Respiratory Respiratory exam: Present: decreased breath sounds (She has decreased breath sounds in the right base), rales, rhonchi - Cardiovascular Cardiovascular exam: Present: regular rate and rhythm. Absent: gallop, systolic murmur - GI/Abdominal GI/Abdominal exam: Present: Her abdomen is soft and nontender today with no distention. - Neurological Exam Neurological exam: Present: alert, oriented X3, CN II-XII intact - Psychiatric Psychiatric exam: Present: She looks alert and comfortable today. - Skin Skin exam: Present: warm, dry Results - Labs CBC & BMP: 06/01/16 02:30 06/01/16 02:30 Assessment and Plan (1) Anemia Status: Acute Assessment and plan: The patient's was transfused yesterday and her hemoglobin is up to 10. Current Visit: Yes Qualifiers: Anemia type: unspecified type Qualified Code(s): D64.9 - Anemia, unspecified (2) Right lower lobe pneumonia Status: Acute Assessment and plan: Patient has a right lower lobe consolidation with right hilar prominence and will need to bronchoscope once she stable. Will recheck a chest x-ray tomorrow probably plan a bronchoscope toward the end of the week. Current Visit: Yes Qualifiers: Pneumonia type: due to unspecified organism (3) COPD exacerbation Status: Acute Assessment and plan: The patient is a smoker with COPD and will continue with bronchodilator therapy and steroids. Current Visit: Yes (4) Diarrhea Status: Acute Assessment and plan: Her diarrhea and abdominal pain are much improved today. Her C. difficile titer is negative Current Visit: Yes (5) Abdominal pain Status: Acute Assessment and plan: The patient has mild abdominal pain but her CT was negative. Her abdomen is soft today and nontender. Current Visit: Yes
--- NOTE | 2016-06-01 09:13 | Hospitalist Progress Note ---
Assessment and Plan (1) Right lower lobe pneumonia Status: Acute Assessment and plan: Continue Levaquin and Azactam. Sputum and blood cultures pending. Transfer to the floor today. Current Visit: Yes Qualifiers: Pneumonia type: due to unspecified organism (2) COPD exacerbation Status: Acute Assessment and plan: Continue IV Solu-Medrol and DuoNeb treatments. Antibiotics ongoing for right lower lobe pneumonia. Pulmonary following. Discussed with Dr. Park. Current Visit: Yes (3) Anemia Status: Acute Assessment and plan: Patient with iron deficiency anemia. Iron supplements started. She was transfused 2 units of packed red blood cells for hemoglobin of 7. Current Visit: Yes Qualifiers: Anemia type: unspecified type Qualified Code(s): D64.9 - Anemia, unspecified (4) Hypokalemia Status: Acute Assessment and plan: IV and oral supplementation ordered. Current Visit: No (5) Dehydration Status: Acute Assessment and plan: Receiving IV fluids. Creatinine improving. Current Visit: No (6) NAYELI (acute kidney injury) Status: Acute Assessment and plan: Continue IV fluids. Creatinine improving. Current Visit: Yes Hospitalist: Subjective Interval history: Patient seen and examined. No acute events overnight. She was transfused 2 units of packed red blood cells. Her H&H is stable. She is breathing much easier. Plan to transfer to the floor today. Pulmonary notes reviewed. Exam - Constitutional Vitals: Period Temp Pulse Resp BP Sys/Enciso Pulse Ox Last 24 Hr 96.4 F-98.6 F 84-112 10-30 94-151/39-89 88-100 Exam: Constitutional System: No distress. No tremulousness. Head: Normocephalic, atraumatic. Ears, Nose and Throat System: No pain or tenderness. No epistaxis or discharge Eyes System: Pupils equal, round, and reactive. Extraocular muscles intact. Neck: Supple, without adenopathy, No jugular venous distention. No thyromegaly, neck mass, or prior surgery apparent. Respiratory System: Chest clear to auscultation with the diminished breath sounds at the bases. Occasional wheeze. Cardiovascular System: Heart with tachycardic rate and rhythm. No murmur. GI System: Abdomen soft, nontender. Normo active bowel sounds present. Musculoskeletal System: limbs with no pedal edema. Full distal pulses. Neurological System: No discernable sensory deficit. No aphasia Psychiatric System: Conversation is rational Results - Labs CBC & BMP: 06/01/16 02:30 06/01/16 02:30 Lab Results: I have reviewed the past 24 hour labs Quality Measures - VTE Contraindication to Pharmacological VTE Prophylaxis: Clinical assessment deems Pt at low risk, no prophalaxis needed
--- NOTE | 2016-06-01 15:05 | Physician Query Form ---
CLICK EDIT DOCUMENT TO SELECT QUERY ANSWER --> OK --> SIGN Jennifer Thomson RN, CCDS Certified Clinical Router Tender W) [phone] (f) [phone] [email or web address] PROVIDERS: Make your selection(s) from the choices in EACH section by typing an "x" and enter comments in the comment section. Please use your independent medical judgment in providing your response. This request does not imply that any particular answer is desired or expected. CLINICAL INDICATORS: (Providers should not edit this section) Patient admitted with labored resp, COPD exacerbation and RLL Pneumonia, O2 sat on 2L 89%, Resp 28, placed on O2 at 15 L per venturi mask, "has labored respiration w/ conversation", "may require intubation if status does not improve " If possible, please further clarify the type and acuity of respiratory diagnosis : ACUITY: ( X) Acute ( ) Chronic ( ) Acute on Chronic TYPE: (X ) Respiratory failure with hypoxia ( ) Respiratory failure with hypercapnia ( ) Respiratory Insufficiency ( ) ARDS (Adult/Acute Respiratory Distress Syndrome) ( ) Other, please specify: ( ) Clinically unable to determine Recognized criteria for respiratory failure PH <7.35 or >7.45 PO2 <60 PCO2 >50 RR >24 O2 Sat <90% on RA or <95% on O2 Use of accessory muscles Unable to speak in full sentences Intubation is not required COMMENTS: Use of terms such as suspected, likely, or probable (associated with a specific diagnosis that is being evaluated, monitored, or treated as if it exists) are acceptable and can be restated in the discharge summary if not ruled out. MTDD
[2016-06-01] MEDS: PANTOPRAZOLE 40 MG VIAL IV SCH (18:22)
[2016-06-01] MEDS: LEVOFLOXACIN INJ 750 MG in PREMIX 1 EACH IV SCH (19:14)
[2016-06-01] MEDS: tiZANidine 4 MG TABLET PO SCH (20:21)
[2016-06-02] MEDS: LEVALBUTEROL 1.25 MG/3 ML NEB RESP TX SCH ×4 (00:25→19:49)
[2016-06-02] MEDS: AZTREONAM 2,000 MG in SODIUM CHLORIDE 0.9% 100 ML IV SCH ×4 (01:10→18:42)
[2016-06-02] MEDS: methylPREDNISolone SOD SUC 125 MG/2 ML VIAL IV SCH ×3 (01:10→13:26)
--- NOTE | 2016-06-02 07:29 | XRay Report ---
XR chest 2V Indication: Right lower lobe pneumonia. Chest 2 views: Comparison 2 days earlier shows a dense infiltrate within the posterior basal segment right lower lobe. Right parapneumonic effusion is present. No new infiltrates are seen on the left. Healed left rib fractures again shown. Borderline cardiomegaly is stable. Impression: Right lower lobe pneumonia with very small parapneumonic effusion. PROCEDURE INTERPRETED AT [facility] DEPARTMENT OF RADIOLOGY Final Report Signed by: Remigio Corral M.D.
--- NOTE | 2016-06-02 07:51 | Pulmonology Progress Note ---
Pulmonary - PN: Subj Interval history: Patient is a 61-year-old white lady that comes in with right lower lobe pneumonia. She is a smoker with some COPD. She had been having abdominal pain and diarrhea also. Her C. difficile titer was negative. She was transfused a couple units of blood and she does look much better today. She says she had a fairly good night last night. She still coughing up a little sputum. She feels like her shortness of breath is better. Her abdominal pain is also better. Her chest x-ray still shows some right lower lobe infiltrate. Will plan a bronchoscope tomorrow and check her airways. Exam (Progress Note) - Constitutional Vitals: Period Temp Pulse Resp BP Sys/Enciso Pulse Ox Last 24 Hr 96.4 F-98.0 F 71-100 15-27 86-167/61-80 95-100 Exam: General appearance: normal weight, no distress, she is alert and comfortable today in no distress. She looks like she feels better overall. - Head Head exam: Present: normal inspection, normocephalic - Eye Eye exam: Present: EOMI. Absent: scleral icterus Pupils: Present: WAQAR - ENT ENT exam: Present: normal exam - Neck Neck exam: Present: normal inspection. Absent: lymphadenopathy, thyromegaly - Respiratory Respiratory exam: Present: decreased breath sounds (She has decreased breath sounds in the right base. She is moving air okay without any wheezing.) - Cardiovascular Cardiovascular exam: Present: regular rate and rhythm. Absent: gallop, systolic murmur - GI/Abdominal GI/Abdominal exam: Present: Her abdomen is soft and nontender today with no distention. - Neurological Exam Neurological exam: Present: alert, oriented X3, CN II-XII intact - Psychiatric Psychiatric exam: Present: She looks alert and comfortable today. - Skin Skin exam: Present: warm, dry Results - Labs CBC & BMP: 06/01/16 02:30 06/01/16 02:30 - Diagnostic Findings Procedure: Chest x-ray: image reviewed by me, report reviewed by me (Chest x- ray shows right lower lobe infiltrate still.) Assessment and Plan (1) Anemia Status: Acute Assessment and plan: The patient's was transfused yesterday and her hemoglobin is up to 10. Current Visit: Yes Qualifiers: Anemia type: unspecified type Qualified Code(s): D64.9 - Anemia, unspecified (2) Right lower lobe pneumonia Status: Acute Assessment and plan: Patient still has a right lower lobe infiltrate and will proceed with a bronchoscope tomorrow Current Visit: Yes Qualifiers: Pneumonia type: due to unspecified organism (3) COPD exacerbation Status: Acute Assessment and plan: The patient is a smoker with COPD and will continue with bronchodilator therapy and steroids. She feels like her breathing is much better. Current Visit: Yes (4) Diarrhea Status: Acute Assessment and plan: Her diarrhea and abdominal pain are much improved today. Her C. difficile titer is negative Current Visit: Yes (5) Abdominal pain Status: Acute Assessment and plan: The patient has mild abdominal pain but her CT was negative. Her abdomen is soft today and nontender. Current Visit: Yes
[2016-06-02] MEDS: METOPROLOL SUCCINATE XL 25 MG TABLET PO SCH (09:24)
[2016-06-02] MEDS: LISINOPRIL 5 MG TABLET PO SCH (09:25)
[2016-06-02] MEDS: BUDESONIDE/FORMOTEROL 160-4.5 INHALER 6 GM INH SCH ×2 (09:27→20:36)
--- NOTE | 2016-06-02 17:28 | Hospitalist Progress Note ---
Assessment and Plan (1) Right lower lobe pneumonia Status: Acute Assessment and plan: Continue Levaquin and Azactam. Sputum and blood cultures pending. Bronchoscopy planned for tomorrow Current Visit: Yes Qualifiers: Pneumonia type: due to unspecified organism (2) COPD exacerbation Status: Acute Assessment and plan: Continue IV Solu-Medrol and DuoNeb treatments. Antibiotics ongoing for right lower lobe pneumonia. Pulmonary following. Discussed with Dr. Park. Current Visit: Yes (3) Anemia Status: Acute Assessment and plan: Patient with iron deficiency anemia. Iron supplements started. She was transfused 2 units of packed red blood cells for hemoglobin of 7. Current Visit: Yes Qualifiers: Anemia type: unspecified type Qualified Code(s): D64.9 - Anemia, unspecified (4) Hypokalemia Status: Acute Assessment and plan: IV and oral supplementation ordered. Current Visit: No (5) Dehydration Status: Acute Assessment and plan: Receiving IV fluids. Creatinine improving. Current Visit: No (6) NAYELI (acute kidney injury) Status: Acute Assessment and plan: Continue IV fluids. Creatinine improving. Current Visit: Yes Hospitalist: Subjective Interval history: Patient seen and examined. She is doing much better. No distress noted. Bronchoscopy planned for tomorrow. We will start to wean steroids today. Exam - Constitutional Vitals: Period Temp Pulse Resp BP Sys/Enciso Pulse Ox Last 24 Hr 96.4 F-97.6 F 71-97 15-23 131-167/61-84 95-100 Exam: Constitutional System: No distress. No tremulousness. Head: Normocephalic, atraumatic. Ears, Nose and Throat System: No pain or tenderness. No epistaxis or discharge Eyes System: Pupils equal, round, and reactive. Extraocular muscles intact. Neck: Supple, without adenopathy, No jugular venous distention. No thyromegaly, neck mass, or prior surgery apparent. Respiratory System: Chest rhonchi and diminished breath sounds at the right base. Occasional wheeze noted. Cardiovascular System: Heart with tachycardic rate and rhythm. No murmur. GI System: Abdomen soft, nontender. Normo active bowel sounds present. Musculoskeletal System: limbs with no pedal edema. Full distal pulses. Neurological System: No discernable sensory deficit. No aphasia Psychiatric System: Conversation is rational Results - Labs CBC & BMP: 06/01/16 02:30 06/01/16 02:30 Lab Results: I have reviewed the past 24 hour labs - Diagnostic Findings Procedure: CT - chest: image reviewed by me, report reviewed by me Quality Measures - VTE Contraindication to Pharmacological VTE Prophylaxis: Clinical assessment deems Pt at low risk, no prophalaxis needed
[2016-06-02] MEDS: PANTOPRAZOLE 40 MG VIAL IV SCH (18:41)
[2016-06-02] MEDS: methylPREDNISolone SOD SUC 40 MG/1 ML VIAL IV SCH (18:41)
[2016-06-02] MEDS: LEVOFLOXACIN INJ 750 MG in PREMIX 1 EACH IV SCH (20:36)
[2016-06-02] MEDS: tiZANidine 4 MG TABLET PO SCH (20:36)
[2016-06-03] MEDS: AZTREONAM 2,000 MG in SODIUM CHLORIDE 0.9% 100 ML IV SCH ×4 (00:10→18:43)
[2016-06-03] MEDS: LEVALBUTEROL 1.25 MG/3 ML NEB RESP TX SCH ×4 (05:35→19:47)
[2016-06-03] MEDS: methylPREDNISolone SOD SUC 40 MG/1 ML VIAL IV SCH ×2 (05:43→18:45)
[2016-06-03] MEDS ORDERED: GLYCOPYRROLATE 0.4 MG/2 ML VIAL IM ONE (07:30)
[2016-06-03] MEDS ORDERED: MEPERIDINE 50 MG/1 ML VIAL IM ONE (07:30)
[2016-06-03] MEDS ORDERED: PROMETHAZINE 25 MG/1 ML VIAL IM ONE (07:30)
[2016-06-03] MEDS ORDERED: MIDAZOLAM 2 MG/2 ML VIAL ONE (07:46)
[2016-06-03] MEDS ORDERED: MIDAZOLAM 2 MG/2 ML VIAL IV ONE (08:00)
[2016-06-03] MEDS ORDERED: LIDOCAINE 1% 20 ML VIAL MISC INJ ONE (08:00)
[2016-06-03] MEDS ORDERED: LIDOCAINE 4% TOP SOLN 50 ML BOTTLE RESP TX ONE (08:00)
[2016-06-03] MEDS ORDERED: LIDOCAINE 2% VISCOUS 100 ML BOTTLE SWISH/SPIT ONE (08:00)
--- NOTE | 2016-06-03 08:08 | Pulmonology Progress Note ---
Pulmonary - PN: Subj Interval history: Patient is a 61-year-old white lady that comes in with right lower lobe pneumonia. She is a smoker with some COPD. She had been having abdominal pain and diarrhea also. Her C. difficile titer was negative. She was transfused a couple units of blood and she does look much better. She says she had a fairly good night but is still coughing some. She is not having any fever. Overall she is about the same. Will proceed with a bronchoscope today. Exam (Progress Note) - Constitutional Vitals: Period Temp Pulse Resp BP Sys/Enciso Pulse Ox Last 24 Hr 96.1 F-98.8 F 76-122 10-23 138-192/69-101 91-100 Exam: General appearance: normal weight, no distress, she is alert and comfortable today in no distress. She still has some cough. - Head Head exam: Present: normal inspection, normocephalic - Eye Eye exam: Present: EOMI. Absent: scleral icterus Pupils: Present: WAQAR - ENT ENT exam: Present: normal exam - Neck Neck exam: Present: normal inspection. Absent: lymphadenopathy, thyromegaly - Respiratory Respiratory exam: Present: She has fairly good breath sounds bilaterally with minimal rhonchi. - Cardiovascular Cardiovascular exam: Present: regular rate and rhythm. Absent: gallop, systolic murmur - GI/Abdominal GI/Abdominal exam: Present: Her abdomen is soft and nontender today with no distention. - Neurological Exam Neurological exam: Present: alert, oriented X3, CN II-XII intact - Psychiatric Psychiatric exam: Present: She looks alert and comfortable today. - Skin Skin exam: Present: warm, dry Results - Labs CBC & BMP: 06/01/16 02:30 06/01/16 02:30 Assessment and Plan (1) Anemia Status: Acute Assessment and plan: The patient's was transfused yesterday and her hemoglobin is up to 10. Current Visit: Yes Qualifiers: Anemia type: unspecified type Qualified Code(s): D64.9 - Anemia, unspecified (2) Right lower lobe pneumonia Status: Acute Assessment and plan: Patient still has a right lower lobe infiltrate and clinically she is doing better. Will scope today and take a look at her airway. Current Visit: Yes Qualifiers: Pneumonia type: due to unspecified organism (3) COPD exacerbation Status: Acute Assessment and plan: The patient is a smoker with COPD and will continue with bronchodilator therapy and steroids. She feels like her breathing is much better. Current Visit: Yes (4) Diarrhea Status: Acute Assessment and plan: Her diarrhea and abdominal pain are much improved today. Her C. difficile titer is negative. Her GI symptoms are better Current Visit: Yes (5) Abdominal pain Status: Resolved Assessment and plan: The patient has mild abdominal pain but her CT was negative. Her abdomen is soft today and nontender. Current Visit: Yes
--- NOTE | 2016-06-03 08:11 | Operative Note ---
Date of procedure: 06/03/16 Pre-op diagnosis: Right lower lobe infiltrate Post-op diagnosis: other (Bronchitis with mucous plugging) Procedure: The patient is a 61-year-old smoker that has a persistent right lower lobe infiltrate. A bronchoscopy will be done to check airways. Timeout was performed to identify the patient. The patient is in the bronchoscopy lab. Preop: Demerol 50 mg, Phenergan 25 mg, Robinul 0.1 mg IM. Anesthesia: Versed 4 mg IVP, topical lidocaine. Procedure: The fiberoptic bronchoscope was passed transnasally through the vocal cords into the lungs. The bronchopulmonary segments were identified and specimens were obtained. Findings: The vocal cords trachea and shree are unremarkable. The right upper lobe, right middle lobe and right lower lobe are open. The right lower lobe was plugged with thick mucus that was washed and cleared. There is bronchitis present. The left upper lobe, lingula and left lower lobe are open. There is thick mucus on the left side that was cleared. There are no endobronchial lesions seen. Once the airways were clear the procedure was stopped. She coughed a lot but tolerated the procedure well. Impression: Bronchitis with mucous plugging. Plan: We will continue steroids and antibiotics and respiratory therapy. Anesthesia: conscious sedation Surgeon / Physician: Jet Park Estimated blood loss: none Specimens: other (Washings were sent for culture and cytology) Condition: stable Disposition: floor Results - Labs CBC & BMP: 06/01/16 02:30 06/01/16 02:30 Discharge Plan - Discharge Medications No Action Tizanidine HCl 4 mg PO BEDTIME Promethazine Tab [Phenergan Tab] 25 mg PO BID PRN PRN Reason: Nausea/Vomiting Butalb/Acetaminophen/Caffeine [Zenxxa-Unuxysgi-Yzib 50-325-40] 1 mg PO TID PRN PRN Reason: Headache Amitriptyline HCl 25 - 50 mg PO BEDTIME Lisinopril [Prinivil] 5 mg PO DAILY #30 tablet Albuterol Neb [Proventil Neb] 2.5 mg RESP TX RT Q1H PRN #30 nebulization solution PRN Reason: Shortness Of Breath/Wheezing Budesonide/Formoterol 160-4.5 [Symbicort 160-4.5] 2 puff INH BID #30 inhaler Albuterol Sulfate [Proair HFA] 2 puffs INH Q4-6H Metoprolol Succinate Xl [Toprol Xl] 25 mg PO DAILY cephALEXin [Cephalexin] 500 mg PO BID - Follow Up or Referral - Forms/Instructions
[2016-06-03] MEDS: BUDESONIDE/FORMOTEROL 160-4.5 INHALER 6 GM INH SCH ×2 (10:37→20:29)
[2016-06-03] MEDS: LISINOPRIL 5 MG TABLET PO SCH (10:38)
[2016-06-03] MEDS: METOPROLOL SUCCINATE XL 25 MG TABLET PO SCH (10:38)
--- NOTE | 2016-06-03 12:46 | Hospitalist Progress Note ---
Assessment and Plan (1) Right lower lobe pneumonia Status: Acute Assessment and plan: Continue Levaquin and Azactam. Sputum and blood cultures pending. Bronchoscopy performed this morning by Dr. Park showing mucous plug. Repeat chest x-ray in a.m. Weaning steroids. Possible discharge in a.m. Current Visit: Yes Qualifiers: Pneumonia type: due to unspecified organism (2) COPD exacerbation Status: Acute Assessment and plan: Continue IV Solu-Medrol and DuoNeb treatments. Antibiotics ongoing for right lower lobe pneumonia. Pulmonary following. Discussed with Dr. Park. Current Visit: Yes (3) Anemia Status: Resolved Assessment and plan: Patient with iron deficiency anemia. Iron supplements started. She was transfused 2 units of packed red blood cells for hemoglobin of 7. Current Visit: Yes Qualifiers: Anemia type: unspecified type Qualified Code(s): D64.9 - Anemia, unspecified (4) Hypokalemia Status: Resolved Assessment and plan: IV and oral supplementation ordered. Current Visit: No (5) Dehydration Status: Resolved Assessment and plan: Receiving IV fluids. Creatinine improving. Current Visit: No (6) NAYELI (acute kidney injury) Status: Resolved Assessment and plan: Continue IV fluids. Creatinine improving. Current Visit: Yes Hospitalist: Subjective Interval history: Patient seen and examined. Daughter at the bedside. We discussed her bronchoscopy reports from today. She is very anxious to go home. Will reevaluate after chest x-ray in a.m. No further complaints at this time. Exam - Constitutional Vitals: Period Temp Pulse Resp BP Sys/Enciso Pulse Ox Last 24 Hr 96.1 F-98.8 F 76-122 10-23 138-192/69-102 91-100 Exam: Constitutional System: No distress. No tremulousness. Head: Normocephalic, atraumatic. Ears, Nose and Throat System: No pain or tenderness. No epistaxis or discharge Eyes System: Pupils equal, round, and reactive. Extraocular muscles intact. Neck: Supple, without adenopathy, No jugular venous distention. No thyromegaly, neck mass, or prior surgery apparent. Respiratory System: Chest improved breath sounds at the right base. No wheeze noted. Cardiovascular System: Heart with tachycardic rate and rhythm. No murmur. GI System: Abdomen soft, nontender. Normo active bowel sounds present. Musculoskeletal System: limbs with no pedal edema. Full distal pulses. Neurological System: No discernable sensory deficit. No aphasia Psychiatric System: Conversation is rational Results - Labs CBC & BMP: 06/01/16 02:30 06/01/16 02:30 Lab Results: I have reviewed the past 24 hour labs - Diagnostic Findings Procedure: Chest x-ray: image reviewed by me, report reviewed by me Quality Measures - VTE Contraindication to Pharmacological VTE Prophylaxis: Clinical assessment deems Pt at low risk, no prophalaxis needed
[2016-06-03] MEDS: PANTOPRAZOLE 40 MG VIAL IV SCH (18:45)
[2016-06-03] MEDS: LEVOFLOXACIN INJ 750 MG in PREMIX 1 EACH IV SCH (20:14)
[2016-06-03] MEDS: tiZANidine 4 MG TABLET PO SCH (20:28)
[2016-06-04] MEDS: LEVALBUTEROL 1.25 MG/3 ML NEB RESP TX SCH ×2 (00:36→07:39)
[2016-06-04] MEDS: AZTREONAM 2,000 MG in SODIUM CHLORIDE 0.9% 100 ML IV SCH ×2 (01:18→07:08)
[2016-06-04 07:01] LABS: Eosinophils % 0.3 % (0.00-10.9); Immature Granulocytes Absolute 0.07 #; Lymphocytes # 0.6 10*3/uL (1.4-4.0); Lymphocytes % 17.3 % (21.3-54.2); Mean Corpuscular HGB Conc 30.3 GM/DL (32-36); Mean Corpuscular Hemoglobin 24 PG (27-34); Mean Corpuscular Volume 78.4 FL (87-102); Mean Platelet Volume 10.1 FL (9.6-12.0); Monocytes # 0.4 10*3/uL (0.11-0.8); Monocytes % 9.8 % (1.7-12.7); Neutrophils # 2.5 10*3/uL (1.4-7.4); Neutrophils % 70.6 % (38.7-73.9); Platelet Count 147 T/CUMM (130-400); Red Blood Count 4.21 MC/CUMM (3.8-5.5); Red Cell Distribution Width 20.9 % (9.3-17.3); White Blood Count 3.6 T/CUMM (4-12)
[2016-06-04] MEDS: methylPREDNISolone SOD SUC 40 MG/1 ML VIAL IV SCH (07:08)
[2016-06-04 07:34] LABS: Magnesium 1.8 MG/DL (1.8-2.4); Osmolality,Calculated 286.8 MOS/KG (273-304); Potassium 3.7 MMOL/L (3.5-5.1)
[2016-06-04 07:38] VITALS: BP 159/71
--- NOTE | 2016-06-04 07:44 | XRay Report ---
XR chest 2V Indication: Pneumonia. Chest 2 views: Comparison 2 days ago shows significant improvement in aeration of the right lung base with some persistent infiltrate posterior right lower lobe. Small amount of right pleural fluid noted as well. Left lung is essentially clear although there is interstitial prominence of both lungs diffusely. Heart has decreased in size slightly, now normal. Impression: Significant improvement in right basilar pneumonia, with some persistent infiltrate posteriorly. PROCEDURE INTERPRETED AT [facility] DEPARTMENT OF RADIOLOGY Final Report Signed by: Remigio Corral M.D.
[2016-06-04] MEDS: METOPROLOL SUCCINATE XL 25 MG TABLET PO SCH (08:32)
[2016-06-04] MEDS: LISINOPRIL 5 MG TABLET PO SCH (08:32)
[2016-06-04] MEDS ORDERED: MYLANTA/LIDO VISC/NYST 180 ML BOTTLE SWISH/SWAL PRN (08:43)
--- NOTE | 2016-06-04 09:38 | Discharge Summary ---
Hospital Course - Hospital Course Hospital Course: This a very unfortunate frail 61 year-old woman that presented to the ED this afternoon with a chief complaint of shortness of breath, abdominal pain, diarrhea. She has a rather impressive past medical history of chronic obstructive pulmonary disease, tobacco abuse, anemia, diverticulitis, GERD, and hypertension. At the time of presentation, she was noted having extreme difficulty breathing. Her oxygen saturations were 84% on room air. She was also grossly hypotensive at 89/43. She is unable to answer any questions due to her current respiratory status; however her is at the bedside providing information. He reports tahts she has been short of breath for a while and that is usually her normal state. He reports that her shortness of breath worsened on last night and became increasingly severe this morning. He also reports that she has been experiencing abdominal pain that was largely isolated to the right upper quadrant. He reports that she has also had bouts of diarrhea in recent days, but thought that it was a diverticulitis flare-up, since she had similar events such as this in the past. He also reports that she still smokes and had been advised on multiple occasions to stop. Prior to admission, he reports that the patient had a productive cough with sputum "yellow" in color and thick in consistency. He also reports that she took several breathing treatments with no relief. He denies alcohol or elicit drug use. She will be admitted to under the hospitalist services to the critical care unit. A pulmonary and GI consult will be requested. Ms. Washburn was admitted to the intensive care unit for treatment of right lower lobe pneumonia and respiratory distress with acute COPD exacerbation. She was seen in consultation by Dr. Park. She was started on broad- spectrum antibiotics including Levaquin and Azactam as well as IV Solu-Medrol and nebulizer treatments. She continued to improve during the course of the hospitalization. Her oxygen was weaned appropriately. The patient was transferred to [facility] and did well. She underwent bronchoscopy with removal of mucous plugging from the right lower lobe. A repeat chest x-ray the following day looks much improved. She is asymptomatic. She is no longer hypoxic. She is being discharged home to continue Levaquin for 6 more days for a full 10 day course as well as a Medrol Dosepak. I also gave her additional prescriptions for [place] Xopenex nebulizer solution nystatin swish and swallow for treatment of oral candidiasis related to her steroid use and nebulizer treatments. The patient has reached maximal benefit from this inpatient hospitalization. She is also on Symbicort at home. Her medications were reviewed and reconciled. I was unable to electronically transmitted prescriptions and therefore they were printed and signed at the time of discharge. I had a lengthy discussion with the patient and her at the bedside regarding her discharge plan, diagnosis, follow-up and signs and symptoms of worsening infection including fever shortness of breath and dyspnea. - Time spent with patient Time with patient DS: Greater than 30 minutes (Total discharge time for this patient, including [id number] time, clinical documentation, medication reconciliation, and discharge planning was 40 minutes.) Diagnosis - Discharge Diagnosis (1) Right lower lobe pneumonia Status: Acute (2) COPD exacerbation Status: Acute (3) Anemia Status: Resolved (4) NAYELI (acute kidney injury) Status: Resolved Specialty Discharge - Follow Up or Referrals Follow up with: Jet Park MD [Physician] - 2 Weeks Discharge Plan - Discharge Data Disposition: Disch To Home/Self Care Condition at Discharge: Stable Discharge Diet: advance to your usual diet Activity: resume usual activities as tolerated Hygiene: no restrictions Contact your physician if you experience:: fever over 101, Shortness of breath, pain uncontrolled by pain medications - Discharge Medications New HYDROcodone/ACETAMIN 5-325 [[place] 5-325] 1 tablet PO Q6H PRN #30 tablet PRN Reason: Pain Moderate (4-7) Levalbuterol Neb [Xopenex Neb] 1.25 mg RESP TX RT Q6H #90 vial Levofloxacin Tab [Levaquin Tab] 750 mg PO DAILY #6 tablet Nicotine 21 mg/24 Hr Patch [Nicoderm CQ 21 mg/24 hr Patch] 1 patch TRANSDERM DAILY PRN #0 patch PRN Reason: Nicotine Withdrawal Nystatin [Nystatin Oral Susp] 200,000 unit SWISH/SWAL QID #60 ml methylPREDNISolone DOSEPAK [Medrol Dosepak] 4 mg PO DIRECTED #1 pack Clotrimazole Raymon [Mycelex Raymon] 10 mg PO 5X DAILY #70 tablet Continue Tizanidine HCl 4 mg PO BEDTIME Promethazine Tab [Phenergan Tab] 25 mg PO BID PRN PRN Reason: Nausea/Vomiting Butalb/Acetaminophen/Caffeine [Vkscce-Mvjvlhbg-Gpnd 50-325-40] 1 mg PO TID PRN PRN Reason: Headache Amitriptyline HCl 25 - 50 mg PO BEDTIME Lisinopril [Prinivil] 5 mg PO DAILY #30 tablet Albuterol Neb [Proventil Neb] 2.5 mg RESP TX RT Q1H PRN #30 nebulization solution PRN Reason: Shortness Of Breath/Wheezing Budesonide/Formoterol 160-4.5 [Symbicort 160-4.5] 2 puff INH BID #30 inhaler Albuterol Sulfate [Proair HFA] 2 puffs INH Q4-6H Metoprolol Succinate Xl [Toprol Xl] 25 mg PO DAILY Discontinued cephALEXin [Cephalexin] 500 mg PO BID - Follow Up or Referral Follow Up: Jet Park MD [Physician] - 2 Weeks - Forms/Instructions Exam - Constitutional Vitals: Period Temp Pulse Resp BP Sys/Enciso Pulse Ox Last 24 Hr 97.1 F-98.9 F 78-101 18-20 139-159/71-88 92-100 Discharge Results Procedures and tests throughout hospitalization: Pending Orders 05/30/16 18:00 Blood Culture Stat 05/31/16 08:12 Occult Blood, Stool Routine 06/03/16 08:00 AFB Culture/Smears Routine Bronchial Washings C & Gram St Routine Fungal Culture w/ Prep Routine 06/03/16 08:05 Cytology Request Routine Labs on day of discharge: Labs from last 24 hours 06/04/16 06/04/16 06/04/16 06:41 05:37 05:37 WBC 3.6 L D RBC 4.21 Hgb 10.0 L Hct 33.0 L MCV 78.4 L MCH 24 L MCHC 30.3 L RDW 20.9 H Plt Count 147 MPV 10.1 Neut % (Auto) 70.6 Lymph % (Auto) 17.3 L Gr[place]gs % (Auto) 9.8 Eos % (Auto) 0.3 Baso % (Auto) 0.0 Neut # (Auto) 2.5 Lymph # (Auto) 0.6 L [place] # (Auto) 0.4 Eos # (Auto) 0.0 Baso # (Auto) 0.0 Immature Gran % 2.0 Nucleated RBC % 0.0 Immature Gran # 0.07 Nucleated RBCs # 0.00 Sodium 144 Potassium 3.7 Chloride 108 H Carbon Dioxide 27 Anion Gap 12.7 BUN 19 H Creatinine 0.50 L GFR Calculation 94 BUN/Creatinine Ratio 38.00 H Glucose 75 POC Glucose 73 L Calculated Osmolality 286.8 Calcium 8.0 L Magnesium 1.8 06/03/16 06/03/16 06/03/16 20:06 15:35 13:12 WBC RBC Hgb Hct MCV MCH MCHC RDW Plt Count MPV Neut % (Auto) Lymph % (Auto) Griggs % (Auto) Eos % (Auto) Baso % (Auto) Neut # (Auto) Lymph # (Auto) Griggs # (Auto) Eos # (Auto) Baso # (Auto) Immature Gran % Nucleated RBC % Immature Gran # Nucleated RBCs # Sodium Potassium Chloride Carbon Dioxide Anion Gap BUN Creatinine GFR Calculation BUN/Creatinine Ratio Glucose POC Glucose 110 H 98 91 Calculated Osmolality Calcium Magnesium Preliminary micro results at discharge 06/03/16 08:00 Bronchial Washings Culture - Preliminary Bronchial Washings Normal Vani at 24 hours 05/30/16 18:00 Blood Culture - Preliminary Blood No growth at 3 days 05/30/16 17:53 Blood Culture - Preliminary Blood No growth at 3 days - Imaging and Cardiology Procedure: Chest x-ray: report reviewed by me, image reviewed by me DS: Provider Date of admission: 05/30/16 17:42 Primary care physician: . No PCP Attending physician on admission: Kevan Tapia MD Consults: 05/30/16 18:03 Consult to Physician [CONS] Routine Comment: Consulting Provider: Nitish Almanza Consult to Specialist Group: Pulmonology 05/30/16 18:16 Consult to Pharmacy [CONS] Routine Reason for Pharmacy Consult: Adjust Meds Renal Funct Discharging clinician: Kevan Tapia MD Expected date of discharge: 06/04/16
[2016-06-04] MEDS ORDERED: CLOTRIMAZOLE 10 MG TROCHE PO SCH (10:00)
[2016-06-04] MEDS: BUDESONIDE/FORMOTEROL 160-4.5 INHALER 6 GM INH SCH (10:35)
[2016-06-04] MEDS ORDERED: MYLANTA/LIDO VISC/NYST 180 ML BOTTLE SWISH/SWAL SCH (11:30)
--- NOTE | 2016-06-04 11:37 | Pulmonology Progress Note ---
Pulmonary - PN: Subj Interval history: Patient is a 61-year-old white lady that comes in with right lower lobe pneumonia. She is a smoker with some COPD. She had a bronchoscope yesterday and a lot of thick mucus cleared. She says she is breathing better and having less cough. She feels like her shortness of breath is better. Her chest x-ray looks much better. She will go home today. Exam (Progress Note) - Constitutional Vitals: Period Temp Pulse Resp BP Sys/Enciso Pulse Ox Last 24 Hr 97.1 F-98.9 F 78-101 18-20 139-159/71-88 92-100 Exam: General appearance: normal weight, no distress, she is alert and comfortable today in no distress. She is breathing much better. - Head Head exam: Present: normal inspection, normocephalic - Eye Eye exam: Present: EOMI. Absent: scleral icterus Pupils: Present: WAQAR - ENT ENT exam: Present: normal exam - Neck Neck exam: Present: normal inspection. Absent: lymphadenopathy, thyromegaly - Respiratory Respiratory exam: Present: She has fairly good breath sounds bilaterally with minimal rhonchi. She is moving air better. - Cardiovascular Cardiovascular exam: Present: regular rate and rhythm. Absent: gallop, systolic murmur - GI/Abdominal GI/Abdominal exam: Present: Her abdomen is soft and nontender today with no distention. - Neurological Exam Neurological exam: Present: alert, oriented X3, CN II-XII intact - Psychiatric Psychiatric exam: Present: She looks alert and comfortable today. - Skin Skin exam: Present: warm, dry Results - Labs CBC & BMP: 06/04/16 05:37 06/04/16 05:37 - Diagnostic Findings Procedure: Chest x-ray: image reviewed by me, report reviewed by me (Chest x- ray shows improvement in the right lower lobe infiltrate.) Assessment and Plan (1) Anemia Status: Resolved Assessment and plan: The patient's was transfused yesterday and her hemoglobin is up to 10. Current Visit: Yes Qualifiers: Anemia type: unspecified type Qualified Code(s): D64.9 - Anemia, unspecified (2) Right lower lobe pneumonia Status: Acute Assessment and plan: Patient still has a right lower lobe infiltrate and clinically she is doing better. She did well with the bronchoscope and her airways looked okay. Her chest x-ray is better today. She can go home on oral medicines. Current Visit: Yes Qualifiers: Pneumonia type: due to unspecified organism (3) COPD exacerbation Status: Acute Assessment and plan: The patient is a smoker with COPD and will continue with bronchodilator therapy and steroids. She feels like her breathing is much better. Current Visit: Yes (4) Diarrhea Status: Acute Assessment and plan: Her diarrhea and abdominal pain are much improved today. Her C. difficile titer is negative. Her GI symptoms are better Current Visit: Yes (5) Abdominal pain Status: Resolved Assessment and plan: The patient has mild abdominal pain but her CT was negative. Her abdomen is soft today and nontender. Current Visit: Yes Specialty Discharge - Follow Up or Referrals Follow up with: Jet Park MD [Physician] - 06/21/16 9:00 am ()
--- NOTE | 2016-06-08 13:15 | Pathology Report from [facility] ---
ACCESSION # : [id number] PATIENT NAME : Sharla Washburn ORDERING DR : GARY GAVIRIA MD CLINICAL HX: COPD, Respiratory infection POST-OP DX: Same SPECIMEN INFO: Washing,Bronchial,KINGSLEY - 20 ml's greyish white with javier and white pieces. CLASS: I CLASS COMMENTS: Marked acute inflammation, pulmonary macrophages, benign respiratory cellsCELL BLOCK: Same CLASS LEGEND: CLASS 0 Material inadequate for diagnosis because of (see comment) CLASS I Absence of atypical or abnormal cells CLASS II Atypical Cytology but no evidence of malignancy CLASS III Cytology suggestive of but not conclusive for malignancy CLASS IV Cytology strongly suggestive of malignancy CLASS V Cytology conclusive for malignancy SERVICE DATE: 06/03/2016 REPORT DATE: 06/04/2016 PATHOLOGIST: Tiana Ford
--- NOTE | 2016-06-09 14:39 | Physician Query Form ---
CLICK EDIT DOCUMENT TO SELECT QUERY ANSWER --> OK --> SIGN PROVIDERS: Make your selection(s) from the choices in EACH section by typing an "x" and enter comments in the comment section. Please use your independent medical judgment in providing your response. This request does not imply that any particular answer is desired or expected. CLINICAL INDICATORS: (Providers should not edit this section) Patient had a FOB performed, 'The left upper lobe, lingula and left lower lobe are open. There is thick mucus on the left side that was cleared." Based on the above, could you clarify the location of the washing? BRONCHIAL: ( ) Left Main Bronchus ( ) Left Lower Lobe Bronchus (x ) Left Upper Lobe Bronchus ( ) Both Upper and Lower Lobe Bronchus ( ) Other, please specify: ( ) Clinically unable to determine COMMENTS: Use of terms such as suspected, likely, or probable (associated with a specific diagnosis that is being evaluated, monitored, or treated as if it exists) are acceptable and can be restated in the discharge summary if not ruled out. MTDD
== END 2016-06-04 11:45 | disposition home or self-care (01) | DRG 190 ==
LOC: N.ED 15:50 → N.EDINP 17:42 → N.ICU 18:15 → N.5E 06-01 23:14
PROVIDERS: ADMIT Family Medicine; ATTEND Family Medicine

== ENCOUNTER 2018-10-16 09:44 | Inpatient (IN) ==
[2018-10-16] MEDS ORDERED: methylPREDNISolone SOD SUC 125 MG/2 ML VIAL IV STA (10:49)
[2018-10-16] MEDS ORDERED: LEVOFLOXACIN INJ 500 MG in PREMIX 1 EACH IV STA (10:49)
[2018-10-16] MEDS ORDERED: ALBUTEROL/IPRATROPIUM 3 ML NEB RESP TX STA (10:49)
[2018-10-16 12:09] LABS: Basophils # 0.1 10*3/uL (0.0-0.2); Basophils % 0.4 % (0.0-0.8); Eosinophils % 0.1 % (0.00-10.9); Immature Granulocytes % 1.6 %; Immature Granulocytes Absolute 0.33 #; Lymphocytes # 1.1 10*3/uL (1.4-4.0); Lymphocytes % 5.6 % (21.3-54.2); Mean Corpuscular HGB Conc 25.9 GM/DL (32-36); Mean Corpuscular Volume 63.4 FL (87-102); Mean Platelet Volume 10.9 FL (9.6-12.0); Monocytes % 6.9 % (1.7-12.7); Neutrophils % 85.4 % (38.7-73.9); Platelet Count 270 T/CUMM (130-400); Red Blood Count 4.26 MC/CUMM (3.8-5.5); White Blood Count 20.2 T/CUMM (4-12)
[2018-10-16 12:17] LABS: Alanine Aminotransferase 14 U/L (13-56); Albumin 2.6 G/DL (3.4-5.0); Alkaline Phosphatase 212 U/L (45-117); Aspartate Amino Transferase 25 U/L (0-37); Blood Urea Nitrogen 7 MG/DL (7-18); Calcium 8.4 MG/DL (8.5-10.1); Glucose 105 MG/DL (74-106); Osmolality,Calculated 257.8 MOS/KG (273-304); Total Protein 7.4 G/DL (6.4-8.3)
[2018-10-16] MEDS ORDERED: SODIUM CHLORIDE 0.9% 1,850 ML IV ONE (12:19)
[2018-10-16 12:22] LABS: Band Neutrophils 1 % (0-10); Hypochromasia 1+; Lymphocytes 5 % (20-55); Platelet Estimate Adequate; Segmented Neutrophils 83 % (50-85); Total Cells Counted 100
[2018-10-16] MEDS ORDERED: POTASSIUM CHLORIDE 20 MEQ TABLET PO STA (12:22)
[2018-10-16 12:58] LABS: Amorphous Crystals,Urine Few /HPF (Few); Apearance,Urine CLEAR (Clear); Bilirubin,Urine Negative (Negative); Blood, Urine Small mg/dL (Negative); Glucose,Urine (UA) Negative (Negative); Ketones,Urine Negative (Negative); Nitrite,Urine Negative (Negative); Protein,Urine 30 MG/DL; RBC,Urine 1 /HPF (0-4); Squamous Epithelial Cell,Urine Occasional /HPF (0-10); Urine Color Yellow (Yellow); Urine Specific Gravity 1.015 (1.001-1.035)
[2018-10-16] MEDS: SODIUM CHLOR 0.9% KCL 20 MEQ 20 MEQ/1,000 ML BAG IV SCH ×2 (14:49→22:46)
[2018-10-16] MEDS: POTASSIUM CHLORIDE 20 MEQ TABLET PO PRN ×2 (16:38→18:41)
[2018-10-16 16:58] LABS: Basophils % 0.2 % (0.0-0.8); Eosinophils % 0.1 % (0.00-10.9); Hematocrit 23.9 VOL% (35.7-47.0); Immature Granulocytes % 2.4 %; Immature Granulocytes Absolute 0.33 #; Lymphocytes # 0.3 10*3/uL (1.4-4.0); Lymphocytes % 2.1 % (21.3-54.2); Mean Corpuscular HGB Conc 25.5 GM/DL (32-36); Mean Corpuscular Volume 64.2 FL (87-102); Mean Platelet Volume 11.1 FL (9.6-12.0); Monocytes % 1.8 % (1.7-12.7); Neutrophils % 93.4 % (38.7-73.9); Platelet Count 242 T/CUMM (130-400); Red Blood Count 3.72 MC/CUMM (3.8-5.5); White Blood Count 13.6 T/CUMM (4-12)
[2018-10-16 17:10] LABS: Hemoglobin 6.1 GM/DL (12.0-16.0)
[2018-10-16] MEDS ORDERED: SODIUM CHLORIDE 0.9% 1,000 ML IV PRN (17:16)
[2018-10-16 17:17] LABS: Lymphocytes 2 % (20-55); Segmented Neutrophils 97 % (50-85); Total Cells Counted 100
[2018-10-16 17:18] LABS: Hypochromasia 1+; Macrocytosis 1+; Ovalocytes 1+; Platelet Estimate Normal
[2018-10-16 17:20] LABS: Anisocytosis 1+; Poikilocytosis 1+
[2018-10-16 17:25] LABS: Folate 15.2 NG/ML (5.4-24.0); Vitamin B12 558 PG/ML (211-911)
[2018-10-16 18:02] LABS: Sedimentation Rate-Westergren 95 MM/HR (0-30)
[2018-10-16] MEDS: ALBUTEROL/IPRATROPIUM 3 ML NEB RESP TX SCH (19:58)
[2018-10-16] MEDS: ACETAMINOPHEN 325 MG TABLET PO PRN (20:50)
[2018-10-16] MEDS: diphenhydrAMINE CAP 25 MG CAPSULE PO PRN (20:52)
[2018-10-16] MEDS: AMITRIPTYLINE 50 MG TABLET PO SCH (20:58)
[2018-10-16] MEDS ORDERED: methylPREDNISolone SOD SUC 40 MG/1 ML VIAL IV ONE (21:13)
[2018-10-17] MEDS: ALBUTEROL/IPRATROPIUM 3 ML NEB RESP TX SCH ×3 (01:20→13:10)
[2018-10-17 05:14] LABS: Calcium 8.9 MG/DL (8.5-10.1); Osmolality,Calculated 276.7 MOS/KG (273-304)
[2018-10-17 05:25] LABS: Risk Ratio 3.9; Thyroid Stimulating Hormone 0.19 uIU/ml (0.358-3.74); VLDL CHOLESTEROL 16.6 MG/DL
[2018-10-17 05:29] LABS: Basophils % 0.2 % (0.0-0.8); Hematocrit 24.4 VOL% (35.7-47.0); Hemoglobin 6.6 GM/DL (12.0-16.0); Immature Granulocytes Absolute 0.22 #; Lymphocytes # 0.3 10*3/uL (1.4-4.0); Mean Corpuscular Volume 66.5 FL (87-102); Mean Platelet Volume 10.8 FL (9.6-12.0); Monocytes % 5.1 % (1.7-12.7); Neutrophils % 84.7 % (38.7-73.9); Platelet Count 206 T/CUMM (130-400); Red Blood Count 3.67 MC/CUMM (3.8-5.5); White Blood Count 5.5 T/CUMM (4-12)
[2018-10-17 05:50] LABS: Lymphocytes 6 % (20-55); Nucleated Red Blood Cells 1 (0-5); Segmented Neutrophils 93 % (50-85); Total Cells Counted 100
[2018-10-17 05:51] LABS: Hypochromasia 1+; Microcytosis 1+; Polychromasia Few; Target Cells Few
[2018-10-17 05:52] LABS: Platelet Estimate Adequate
[2018-10-17] MEDS: guaiFENesin 200 MG/10 ML UDCUP PO PRN ×2 (06:32→20:43)
[2018-10-17] MEDS: SODIUM CHLOR 0.9% KCL 20 MEQ 20 MEQ/1,000 ML BAG IV SCH ×3 (06:44→22:35)
[2018-10-17] MEDS: METOPROLOL SUCCINATE XL 25 MG TABLET PO SCH (08:20)
[2018-10-17] MEDS: LISINOPRIL 5 MG TABLET PO SCH (08:20)
[2018-10-17] MEDS: methylPREDNISolone SOD SUC 40 MG/1 ML VIAL IV SCH ×2 (08:21→20:45)
[2018-10-17] MEDS: PANTOPRAZOLE 40 MG TABLET PO SCH (08:21)
[2018-10-17] MEDS: ENOXAPARIN 40 MG/0.4 ML SYRINGE SUBCUT SCH (08:26)
[2018-10-17] MEDS: LEVOFLOXACIN INJ 750 MG in PREMIX 1 EACH IV SCH (08:26)
[2018-10-17 09:24] LABS: Hemoglobin A1 (Alkaline) 97.3 % (96.5-98.5); Hemoglobin A2 (Alkaline) 2.7 % (1.5-3.5)
[2018-10-17 09:40] LABS: % Iron Saturation 10.5 % (18-50)
[2018-10-17] MEDS ORDERED: traMADol 50 MG TABLET PO PRN (14:45)
[2018-10-17] MEDS: IRON SUCROSE 200 MG in SODIUM CHLORIDE 0.9% 100 ML IV SCH (16:21)
[2018-10-17] MEDS: LEVALBUTEROL 0.63 MG/3 ML NEB RESP TX SCH (19:01)
[2018-10-17] MEDS: AMITRIPTYLINE 50 MG TABLET PO SCH (20:43)
[2018-10-18] MEDS: LEVALBUTEROL 0.63 MG/3 ML NEB RESP TX SCH ×4 (00:12→19:42)
[2018-10-18] MEDS: SODIUM CHLOR 0.9% KCL 20 MEQ 20 MEQ/1,000 ML BAG IV SCH ×2 (01:26→05:36)
[2018-10-18 05:37] LABS: Basophils % 0.2 % (0.0-0.8); Hematocrit 22.5 VOL% (35.7-47.0); Immature Granulocytes % 5.7 %; Immature Granulocytes Absolute 0.37 #; Lymphocytes # 0.4 10*3/uL (1.4-4.0); Lymphocytes % 5.7 % (21.3-54.2); Mean Corpuscular HGB Conc 26.7 GM/DL (32-36); Mean Platelet Volume 10.8 FL (9.6-12.0); Monocytes % 3.2 % (1.7-12.7); Neutrophils % 85.2 % (38.7-73.9); Red Blood Count 3.31 MC/CUMM (3.8-5.5); Red Cell Distribution Width 20.2 % (9.3-17.3); White Blood Count 6.5 T/CUMM (4-12)
[2018-10-18 05:46] LABS: Calcium 8.6 MG/DL (8.5-10.1); Osmolality,Calculated 284.1 MOS/KG (273-304)
[2018-10-18 07:00] LABS: Platelet Count 249 T/CUMM (130-400)
[2018-10-18 07:07] LABS: Hypochromasia 1+; Ovalocytes Slight; Platelet Estimate Adequate
[2018-10-18 07:08] LABS: Microcytosis 1+
[2018-10-18] MEDS: METOPROLOL SUCCINATE XL 25 MG TABLET PO SCH (09:13)
[2018-10-18] MEDS: LISINOPRIL 5 MG TABLET PO SCH (09:14)
[2018-10-18] MEDS: PANTOPRAZOLE 40 MG TABLET PO SCH (09:14)
[2018-10-18] MEDS: ENOXAPARIN 40 MG/0.4 ML SYRINGE SUBCUT SCH (09:15)
[2018-10-18] MEDS: methylPREDNISolone SOD SUC 40 MG/1 ML VIAL IV SCH ×2 (09:15→21:00)
[2018-10-18] MEDS: ACETAMINOPHEN 325 MG TABLET PO PRN (09:15)
[2018-10-18] MEDS: diphenhydrAMINE CAP 25 MG CAPSULE PO PRN (09:16)
[2018-10-18] MEDS: LEVOFLOXACIN INJ 750 MG in PREMIX 1 EACH IV SCH (09:23)
[2018-10-18] MEDS ORDERED: SODIUM CHLORIDE 0.9% 1,000 ML IV SCH (11:30)
[2018-10-18] MEDS: IRON SUCROSE 200 MG in SODIUM CHLORIDE 0.9% 100 ML IV SCH (14:06)
[2018-10-18] MEDS: tiZANidine 4 MG TABLET PO PRN (14:18)
[2018-10-18 15:01] LABS: Hematocrit 30.1 VOL% (35.7-47.0)
[2018-10-18 15:02] LABS: Hemoglobin 7.9 GM/DL (12.0-16.0)
[2018-10-18] MEDS: ONDANSETRON 4 MG/2 ML VIAL IV PRN (19:42)
[2018-10-18] MEDS: AMITRIPTYLINE 50 MG TABLET PO SCH (21:00)
[2018-10-18] MEDS: ALUMINUM/MAGNES/SIMETH MAX STR 30 ML UDCUP PO PRN (22:04)
[2018-10-19] MEDS: LEVALBUTEROL 0.63 MG/3 ML NEB RESP TX SCH ×2 (01:40→07:31)
[2018-10-19 05:27] LABS: Calcium 8.9 MG/DL (8.5-10.1); Osmolality,Calculated 276.5 MOS/KG (273-304)
[2018-10-19 05:41] LABS: Basophils % 0.2 % (0.0-0.8); Hematocrit 27.7 VOL% (35.7-47.0); Hemoglobin 7.2 GM/DL (12.0-16.0); Immature Granulocytes % 7.5 %; Immature Granulocytes Absolute 0.44 #; Lymphocytes # 0.5 10*3/uL (1.4-4.0); Lymphocytes % 8.9 % (21.3-54.2); Mean Corpuscular Volume 71.2 FL (87-102); Mean Platelet Volume 10.3 FL (9.6-12.0); Monocytes % 4.3 % (1.7-12.7); NRBC # 0.02 10*3/uL; Neutrophils % 79.1 % (38.7-73.9); Platelet Count 296 T/CUMM (130-400); Red Blood Count 3.89 MC/CUMM (3.8-5.5); Red Cell Distribution Width 21.9 % (9.3-17.3); White Blood Count 5.9 T/CUMM (4-12)
[2018-10-19 07:16] LABS: Band Neutrophils 3 % (0-10); Lymphocytes 7 % (20-55); Metamyelocytes 2 %; Myelocytes 1 %; Promyelocytes 1 %; Segmented Neutrophils 84 % (50-85); Total Cells Counted 100
[2018-10-19 07:17] LABS: Anisocytosis 1+; Hypochromasia 1+; Microcytosis 1+; Ovalocytes Slight
[2018-10-19 07:18] LABS: Platelet Estimate Normal; Polychromasia Slight
[2018-10-19] MEDS: METOPROLOL SUCCINATE XL 25 MG TABLET PO SCH (10:08)
[2018-10-19] MEDS: LISINOPRIL 5 MG TABLET PO SCH (10:08)
[2018-10-19] MEDS: methylPREDNISolone SOD SUC 40 MG/1 ML VIAL IV SCH ×2 (10:09→22:23)
[2018-10-19] MEDS: IRON SUCROSE 200 MG in SODIUM CHLORIDE 0.9% 100 ML IV SCH (10:09)
[2018-10-19] MEDS: PANTOPRAZOLE 40 MG TABLET PO SCH (10:09)
[2018-10-19] MEDS: ENOXAPARIN 40 MG/0.4 ML SYRINGE SUBCUT SCH (10:11)
[2018-10-19] MEDS ORDERED: ZALEPLON 5 MG CAPSULE PO PRN (10:38)
[2018-10-19] MEDS ORDERED: MAGNESIUM SULF RIDER 2 GM in PREMIX 1 EACH IV PRN (10:39)
[2018-10-19] MEDS ORDERED: MAGNESIUM SULF RIDER 4 GM in PREMIX 1 EACH IV PRN (10:39)
[2018-10-19] MEDS: LEVALBUTEROL 1.25 MG/3 ML NEB RESP TX SCH ×2 (12:38→20:13)
[2018-10-19] MEDS: LEVOFLOXACIN INJ 750 MG in PREMIX 1 EACH IV SCH (12:53)
[2018-10-19] MEDS: ALUMINUM/MAGNES/SIMETH MAX STR 30 ML UDCUP PO PRN (15:20)
[2018-10-19] MEDS: ONDANSETRON 4 MG/2 ML VIAL IV PRN (16:46)
[2018-10-19] MEDS: tiZANidine 4 MG TABLET PO PRN (22:22)
[2018-10-19] MEDS: AMITRIPTYLINE 50 MG TABLET PO SCH (22:23)
[2018-10-20] MEDS: LEVALBUTEROL 1.25 MG/3 ML NEB RESP TX SCH ×4 (01:06→20:52)
[2018-10-20] MEDS ORDERED: PROMETHAZINE 25 MG/1 ML VIAL IM ONE (07:00)
[2018-10-20] MEDS ORDERED: MEPERIDINE 50 MG/1 ML VIAL IM ONE (07:00)
[2018-10-20] MEDS ORDERED: MIDAZOLAM 2 MG/2 ML VIAL ONE (07:12)
[2018-10-20] MEDS ORDERED: LIDOCAINE 2% VISCOUS 100 ML BOTTLE SWISH/SPIT ONE (07:30)
[2018-10-20] MEDS ORDERED: LIDOCAINE 1% 20 ML VIAL MISC INJ ONE (07:30)
[2018-10-20] MEDS ORDERED: LIDOCAINE 2% 20 ML VIAL RESP TX ONE (07:30)
[2018-10-20] MEDS ORDERED: MIDAZOLAM 2 MG/2 ML VIAL IV ONE (07:30)
[2018-10-20] MEDS: PANTOPRAZOLE 40 MG TABLET PO SCH (09:49)
[2018-10-20] MEDS: LISINOPRIL 5 MG TABLET PO SCH (09:49)
[2018-10-20] MEDS: METOPROLOL SUCCINATE XL 25 MG TABLET PO SCH (09:51)
[2018-10-20] MEDS: ACETAMINOPHEN 325 MG TABLET PO PRN (09:51)
[2018-10-20] MEDS: IRON SUCROSE 200 MG in SODIUM CHLORIDE 0.9% 100 ML IV SCH (09:52)
[2018-10-20] MEDS: methylPREDNISolone SOD SUC 40 MG/1 ML VIAL IV SCH ×2 (09:52→20:52)
[2018-10-20] MEDS: LEVOFLOXACIN INJ 750 MG in PREMIX 1 EACH IV SCH ×2 (10:08→11:53)
[2018-10-20 10:48] LABS: Basophils % 0.3 % (0.0-0.8); Calcium 8.9 MG/DL (8.5-10.1); Eosinophils % 0.1 % (0.00-10.9); Immature Granulocytes % 7.1 %; Immature Granulocytes Absolute 0.56 #; Lymphocytes # 1.3 10*3/uL (1.4-4.0); Lymphocytes % 16.3 % (21.3-54.2); Mean Corpuscular HGB Conc 26.4 GM/DL (32-36); Mean Corpuscular Volume 70.9 FL (87-102); Mean Platelet Volume 9.7 FL (9.6-12.0); Monocytes % 4.6 % (1.7-12.7); NRBC # 0.04 10*3/uL; Neutrophils % 71.6 % (38.7-73.9); Osmolality,Calculated 277.5 MOS/KG (273-304); Platelet Count 322 T/CUMM (130-400); Red Blood Count 3.95 MC/CUMM (3.8-5.5); Red Cell Distribution Width 22.9 % (9.3-17.3); White Blood Count 7.9 T/CUMM (4-12)
[2018-10-20 10:49] LABS: Hemoglobin 7.4 GM/DL (12.0-16.0)
[2018-10-20] MEDS: ENOXAPARIN 40 MG/0.4 ML SYRINGE SUBCUT SCH (10:49)
[2018-10-20 10:51] LABS: Lymphocytes 16 % (20-55); Segmented Neutrophils 82 % (50-85); Total Cells Counted 100
[2018-10-20 10:52] LABS: Hypochromasia 2+; Microcytosis 1+; Platelet Estimate Adequate
[2018-10-20] MEDS ORDERED: SODIUM CHLORIDE 0.9% 1,000 ML IV PRN (11:30)
[2018-10-20] MEDS ORDERED: ACETAMINOPHEN 325 MG TABLET PO ONE (17:02)
[2018-10-20] MEDS: diphenhydrAMINE CAP 25 MG CAPSULE PO PRN (17:08)
[2018-10-20] MEDS: AMITRIPTYLINE 50 MG TABLET PO SCH (20:52)
[2018-10-20 23:31] LABS: Hematocrit 31.3 VOL% (35.7-47.0); Hemoglobin 8.7 GM/DL (12.0-16.0)
[2018-10-21] MEDS: LEVALBUTEROL 1.25 MG/3 ML NEB RESP TX SCH ×3 (01:33→13:57)
[2018-10-21 06:23] LABS: Calcium 8.8 MG/DL (8.5-10.1); Osmolality,Calculated 277.5 MOS/KG (273-304)
[2018-10-21 06:25] LABS: Basophils # 0.1 10*3/uL (0.0-0.2); Basophils % 0.6 % (0.0-0.8); Hematocrit 34.5 VOL% (35.7-47.0); Hemoglobin 9.4 GM/DL (12.0-16.0); Immature Granulocytes % 7.8 %; Immature Granulocytes Absolute 0.93 #; Lymphocytes # 1.1 10*3/uL (1.4-4.0); Lymphocytes % 8.8 % (21.3-54.2); Mean Corpuscular HGB Conc 27.2 GM/DL (32-36); Mean Corpuscular Volume 73.7 FL (87-102); Mean Platelet Volume 10.1 FL (9.6-12.0); NRBC # 0.02 10*3/uL; Neutrophils % 79.8 % (38.7-73.9); Platelet Count 373 T/CUMM (130-400); Red Blood Count 4.68 MC/CUMM (3.8-5.5); Red Cell Distribution Width 24.5 % (9.3-17.3); White Blood Count 11.9 T/CUMM (4-12)
[2018-10-21 06:39] LABS: Band Neutrophils 2 % (0-10); Eosinophils 2 % (0-10); Lymphocytes 9 % (20-55); Myelocytes 2 %; Segmented Neutrophils 83 % (50-85); Total Cells Counted 100
[2018-10-21 06:40] LABS: Anisocytosis 1+; Hypochromasia 1+; Ovalocytes 1+; Platelet Estimate Adequate; Tear Drop Cells Few
[2018-10-21] MEDS: METOPROLOL SUCCINATE XL 25 MG TABLET PO SCH (09:10)
[2018-10-21] MEDS: IRON SUCROSE 200 MG in SODIUM CHLORIDE 0.9% 100 ML IV SCH (09:11)
[2018-10-21] MEDS: PANTOPRAZOLE 40 MG TABLET PO SCH (09:11)
[2018-10-21] MEDS: LISINOPRIL 5 MG TABLET PO SCH (09:11)
[2018-10-21] MEDS: methylPREDNISolone SOD SUC 40 MG/1 ML VIAL IV SCH (09:11)
[2018-10-21] MEDS: ENOXAPARIN 40 MG/0.4 ML SYRINGE SUBCUT SCH (09:12)
[2018-10-21] MEDS: LEVOFLOXACIN INJ 750 MG in PREMIX 1 EACH IV SCH (10:06)
[2018-10-21 11:41] VITALS: BP 130/60
== END 2018-10-21 16:20 | disposition home or self-care (01) | DRG 190 ==
LOC: N.ED 09:44 → N.EDINP 14:12 → N.2E 15:42
PROVIDERS: ADMIT Internal Medicine; ATTEND Internal Medicine